=== PATIENT | female | born 1965 | race Caucasian/White ===

== ENCOUNTER → 2016-12-21 | Outpatient (REF) | payer BC ==
[~2016-12-21] MED LIST: CLAR10CA3 PO; LEVO75TA4 PO
== END ==
LOC: M LABDRAW1 16:01
PROVIDERS: ATTEND Physician Assistant Medical
DX: E06.3 Autoimmune thyroiditis (principal)

== ENCOUNTER → 2017-07-06 | Outpatient (REF) | payer BC | LOC: M LABDRAW1 10:42 | PROVIDERS: ATTEND Physician Assistant Medical | DX: E06.3 Autoimmune thyroiditis (principal) ==

== ENCOUNTER → 2018-07-29 | Outpatient (REF) | payer BC ==
[2018-07-29 19:18] LABS: THYROID STIMULATING HORMONE 0.289 uIU/ML (0.358-3.740)
== END ==
LOC: M LABDRAW1 17:44
DX: E06.3 Autoimmune thyroiditis (principal)
CPT/HCPCS: 84443

== ENCOUNTER 2019-08-08 10:35 | Emergency (ER) | payer OTHER, BC ==
[~2019-08-08] VITALS: Ht 177.8 cm; Wt 97.4 kg
[2019-08-08] MEDS ORDERED: DOXY100C PO (10:39)
[2019-08-08] MEDS ORDERED: SYNT100T PO (10:39)
[2019-08-08] MEDS ORDERED: KETOROLAC 60 MG/2 ML VIAL (J1885) IM ONE (12:45)
[2019-08-08] MEDS ORDERED: METHOCARBAMOL 750 MG TAB PO ONE (12:45)
[2019-08-08 13:27] VITALS: BP 152/88
[2019-08-08] MEDS ORDERED: KETO10TAB PO (14:15)
[2019-08-08] MEDS ORDERED: META1TAB23 PO (14:15)
== END 2019-08-08 14:20 | disposition home or self-care (01) ==
LOC: M ED 10:35
DX: S39.012A Strain of muscle, fascia and tendon of lower back, initial encounter (principal); Y93.F9 Activity, other caregiving; Y99.0 Civilian activity done for income or pay; E03.9 Hypothyroidism, unspecified; Z79.899 Other long term (current) drug therapy
CPT/HCPCS: 96372; 99283; J1885

== ENCOUNTER → 2019-09-09 | Outpatient (REF) | payer OTHER, BC ==
[~2019-09-09] MED LIST changes: +DOXY100C PO; +KETO10TAB PO; +META1TAB23 PO; +SYNT100T PO
== END ==
LOC: M LABDRAW1 15:49
PROVIDERS: ATTEND Internal Medicine Endocrinology, Diabetes & Metabolism
DX: E06.3 Autoimmune thyroiditis (principal)

== ENCOUNTER → 2020-11-08 | Outpatient (REF) | payer BC | LOC: M LAB REF 12:52 | PROVIDERS: ATTEND Physician Assistant Medical | DX: Z11.59 Encounter for screening for other viral diseases (principal) ==

== ENCOUNTER 2021-09-22 19:24 | Emergency (ER) | payer BC ==
[~2021-09-22] VITALS: Ht 177.8 cm; Wt 97.5 kg
[~2021-09-22 19:24] MED LIST changes: -DOXY100C PO; +DOXY100C3 PO
[2021-09-22 19:25] VITALS: BP 137/73
[2021-09-22] MEDS ORDERED: CELE100C PO (19:33)
[2021-09-22] MEDS ORDERED: FLON1SPR NARES (19:33)
--- OUTSIDE RECORDS SUMMARY | 2021-09-22 19:37 | CCD ---
Author Author [facility] Organization [facility] Address Unknown Phone Unavailable Care Team Providers Care Naturopath Name Role Phone Dutch KERR Unavailable Unavailable Juliocesar WALKER Unavailable Unavailable BETH-GUERO, WANDA DO Unavailable Unavailable BETH-GUERO, WANDA DO Unavailable Unavailable BETH-GUERO, WANDA DO Unavailable Unavailable BETH-GUERO, WANDA DO Unavailable Unavailable BETH-GUERO, WANDA DO Unavailable Unavailable BETH-GUERO, WANDA DO Unavailable Unavailable BETH-GUERO, WANDA DO Unavailable Unavailable BETH-GUERO, WANDA DO Unavailable Unavailable BETH-GUERO, WANDA DO Unavailable Unavailable BETH-GUERO, WANDA DO Unavailable Unavailable BETH-GUERO, WANDA DO Unavailable Unavailable BETH-GUERO, WANDA DO Unavailable Unavailable BETH-GUERO, WANDA DO Unavailable Unavailable BETH-GUERO, WANDA DO Unavailable Unavailable BETH-GUERO, WANAD DO Unavailable Unavailable BETH-GUERO, WANDA DO Unavailable Unavailable BETH-GUERO, WANDA DO Unavailable Unavailable BETH-GUERO, WANDA DO Unavailable Unavailable BETH-GUERO, WANDA DO Unavailable Unavailable BETH-GUERO, WANDA DO Unavailable Unavailable BETH-GUERO, WANDA DO Unavailable Unavailable BETH-GUERO, WANDA DO Unavailable Unavailable BETH-GUERO, WANDA DO Unavailable Unavailable BETH-GUERO, WANDA DO Unavailable Unavailable BETH-GUERO, WANDA DO Unavailable Unavailable BETH-GUERO, WANDA DO Unavailable Unavailable BETH-GUERO, WANDA DO Unavailable Unavailable BETH-GUERO, WANDA DO Unavailable Unavailable BETH-GUERO, WANDA DO Unavailable Unavailable BETH-GUERO, WANDA DO Unavailable Unavailable BETH-GUERO, WANDA DO Unavailable Unavailable BETH-GUERO, WANDA DO Unavailable Unavailable BETH-GUERO, WANDA DO Unavailable Unavailable BETH-GUERO, WANDA DO Unavailable Unavailable BETH-GUERO, WANDA DO Unavailable Unavailable BETH-GUERO, WANDA DO Unavailable Unavailable BETH-GUERO, WANDA DO Unavailable Unavailable BETH-GUERO, WANDA DO Unavailable Unavailable BETH-GUERO, WANDA DO Unavailable Unavailable BETH-GUERO, WANDA DO Unavailable Unavailable BETH-GUERO, WANDA DO Unavailable Unavailable BETH-GUERO, WANDA DO Unavailable Unavailable BETH-GUERO, WANDA DO Unavailable Unavailable BETH-GUERO, WANDA DO Unavailable Unavailable BETH-GUERO, WANDA DO Unavailable Unavailable BETH-GUERO, WANDA DO Unavailable Unavailable BETH-GUERO, WANDA DO Unavailable Unavailable BETH-GUERO, WANDA DO Unavailable Unavailable BETH-GUERO, WANDA DO Unavailable Unavailable BETH-GUERO, WANDA DO Unavailable Unavailable BETH-GUERO, WANDA DO Unavailable Unavailable BETH-GUERO, WANDA DO Unavailable Unavailable BETH-GUERO, WANDA DO Unavailable Unavailable BETH-GUERO, WANDA DO Unavailable Unavailable BETH-GUERO, WANDA DO Unavailable Unavailable BETH-GUERO, WANDA DO Unavailable Unavailable BETH-GUERO, WANDA DO Unavailable Unavailable BETH-GUERO, WANDA DO Unavailable Unavailable BETH-GUERO, WANDA DO Unavailable Unavailable BETH-GUERO, WANDA DO Unavailable Unavailable BETH-GUERO, WANDA DO Unavailable Unavailable BETH-GUERO, WANDA DO Unavailable Unavailable BETH-GUERO, WANDA DO Unavailable Unavailable BETH-GUERO, WANDA DO Unavailable Unavailable BETH-GUERO, WANDA DO Unavailable Unavailable BETH-GUERO, WANDA DO Unavailable Unavailable BETH-GUERO, WANDA DO Unavailable Unavailable BETH-GUERO, WANDA DO Unavailable Unavailable BETH-GUERO, WANDA DO Unavailable Unavailable BETH-GUERO, WANDA DO Unavailable Unavailable BETH-GUERO, WANDA DO Unavailable Unavailable BETH-GUERO, WANDA DO Unavailable Unavailable BETH-GUERO, WANDA DO Unavailable Unavailable BETH-GUERO, WANDA DO Unavailable Unavailable BETH-GUERO, WANDA DO Unavailable Unavailable BETH-GUERO, WANDA DO Unavailable Unavailable BETH-GUERO, WANDA DO Unavailable Unavailable BETH-GUERO, WANDA DO Unavailable Unavailable BETH-GUERO, WANDA DO Unavailable Unavailable BETH-GUERO, WANDA DO Unavailable Unavailable BETH-GUERO, WANDA DO Unavailable Unavailable BETH-GUERO, WANDA DO Unavailable Unavailable BETH-GUERO, WANDA DO Unavailable Unavailable BETH-GUERO, WANDA DO Unavailable Unavailable Sofia, Donell PA Unavailable Unavailable Sofia, Donell PA Unavailable Unavailable Sofia, Donell PA Unavailable Unavailable Sofia, Donell PA Unavailable Unavailable Sofia, Donell PA Unavailable Unavailable Sofia, Donell PA Unavailable Unavailable Sofia, Donell PA Unavailable Unavailable Sofia, Donell PA Unavailable Unavailable Sofia, Donell PA Unavailable Unavailable Sofia, Donell PA Unavailable Unavailable Sofia, Donell PA Unavailable Unavailable Sofia, Donell PA Unavailable Unavailable Sofia, Donell PA Unavailable Unavailable Sofia, Donell PA Unavailable Unavailable Sofia, Dnoell PA Unavailable Unavailable Sofia, Donell PA Unavailable Unavailable Sofia, Donell PA Unavailable Unavailable Sofia, Donell PA Unavailable Unavailable Sofia, Donell PA Unavailable Unavailable Sofia, Donell PA Unavailable Unavailable Sofia, Donell PA Unavailable Unavailable Sofia, Donell PA Unavailable Unavailable Sofia, Donell PA Unavailable Unavailable Sofia, Donell PA Unavailable Unavailable Sofia, Donell PA Unavailable Unavailable Sofia, Donell PA Unavailable Unavailable Sofia, Donell PA Unavailable Unavailable Sofia, Donlel PA Unavailable Unavailable Sofia, Donell PA Unavailable Unavailable Sofia, Donell PA Unavailable Unavailable Sofia, Donell PA Unavailable Unavailable Sofia, Donell PA Unavailable Unavailable Sofia, Donell PA Unavailable Unavailable Sofia, Donell PA Unavailable Unavailable Sofia, Donell PA Unavailable Unavailable Sofia, Donell PA Unavailable Unavailable Sofia, Donell PA Unavailable Unavailable Sofia, Donell PA Unavailable Unavailable Sofia, Donell PA Unavailable Unavailable Sofia, Donell PA Unavailable Unavailable Sofia, Donell PA Unavailable Unavailable Sofia, Donell PA Unavailable Unavailable Sofia, Donell PA Unavailable Unavailable Sofia, Donell PA Unavailable Unavailable Sofia, Donell PA Unavailable Unavailable Sofia, Donell PA Unavailable Unavailable Sofia, Donell PA Unavailable Unavailable Sofia, Donell PA Unavailable Unavailable Sofia, Donell PA Unavailable Unavailable Sofia, Donell PA Unavailable Unavailable Sofia, Donell PA Unavailable Unavailable Sofia, Donell PA Unavailable Unavailable Sofia, Donell PA Unavailable Unavailable Sofia, Donell PA Unavailable Unavailable [id number], NA Unavailable [phone] Rabbia, C Yanely Unavailable Unavailable Rabbia, C Yanely Unavailable Unavailable Rabbia, C Yanely Unavailable Unavailable Berkowitz, P Harley PA Unavailable Unavailable Berkowitz, P Harley PA Unavailable Unavailable Berkowitz, P Harley PA Unavailable Unavailable Berkowitz, P Harley PA Unavailable Unavailable Berkowitz, P Harley PA Unavailable Unavailable Berkowitz, P Harley PA Unavailable Unavailable Berkowitz, P Harley PA Unavailable Unavailable Berkowitz, P Harley PA Unavailable Unavailable Berkowitz, P Harley PA Unavailable Unavailable Berkowitz, P Harley PA Unavailable Unavailable Berkowitz, P Harley PA Unavailable Unavailable Berkowitz, P Harley PA Unavailable Unavailable Berkowitz, P Harley PA Unavailable Unavailable Berkowitz, P Harley PA Unavailable Unavailable Berkowitz, P Harley PA Unavailable Unavailable Berkowitz, P Harley PA Unavailable Unavailable Berkowitz, P Harley PA Unavailable Unavailable Berkowitz, P Harley PA Unavailable Unavailable Berkowitz, P Harley PA Unavailable Unavailable Berkowitz, P Harley PA Unavailable Unavailable Berkowitz, P Harley PA Unavailable Unavailable Berkowitz, P Harley PA Unavailable Unavailable Berkowitz, P Harley PA Unavailable Unavailable Berkowitz, P Harley PA Unavailable Unavailable Berkowitz, P Harley PA Unavailable Unavailable Berkowitz, P Harley PA Unavailable Unavailable Berkowitz, P Harley PA Unavailable Unavailable Berkowitz, P Harley PA Unavailable Unavailable Berkowitz, P Harley PA Unavailable Unavailable Berkowitz, P Harley PA Unavailable Unavailable Berkowitz, P Harley PA Unavailable Unavailable Berkowitz, P Harley PA Unavailable Unavailable Berkowitz, P Harley PA Unavailable Unavailable Berkowitz, P Harley PA Unavailable Unavailable Berkowitz, P Harley PA Unavailable Unavailable Berkowitz, P Harley PA Unavailable Unavailable Berkowitz, P Harley PA Unavailable Unavailable Berkowitz, P Harley PA Unavailable Unavailable Berkowitz, P Harley PA Unavailable Unavailable Berkowitz, P Harley PA Unavailable Unavailable Berkowitz, P Harley PA Unavailable Unavailable Berkowitz, P Harley PA Unavailable Unavailable Renuka Hannah MD Unavailable Unavailable Renuka Hannah MD Unavailable Unavailable Renuka Hannah MD Unavailable Unavailable Renuka Hannah MD Unavailable Unavailable Renuka Hannah MD Unavailable Unavailable Renuka Hannah MD Unavailable Unavailable Renuka Hannah MD Unavailable Unavailable Renuka Hannah MD Unavailable Unavailable Renuka Hannah MD Unavailable Unavailable Renuka Hannah MD Unavailable Unavailable Renuka Hannah MD Unavailable Unavailable Renuka Hannah MD Unavailable Unavailable Renuka Hannah MD Unavailable Unavailable Renuka Hannah MD Unavailable Unavailable Renuka Hannah MD Unavailable Unavailable Renuka Hannah MD Unavailable Unavailable Renuka Hannah MD Unavailable Unavailable Renuka Hannah MD Unavailable Unavailable Renuka Hannah MD Unavailable Unavailable Renuka Hannah MD Unavailable Unavailable Renuka Hannah MD Unavailable Unavailable Renuka Hannah MD Unavailable Unavailable Renuka Hannah MD Unavailable Unavailable Renuka Hannah MD Unavailable Unavailable Renuka Hannah MD Unavailable Unavailable Renuka Hannah MD Unavailable Unavailable Renuka Hannah MD Unavailable Unavailable Renuka Hannah MD Unavailable Unavailable Renuka Hannah MD Unavailable Unavailable Renuka Hannah MD Unavailable Unavailable Renuka Hannah MD Unavailable Unavailable Renuka Hannah MD Unavailable Unavailable Renuka Hannah MD Unavailable Unavailable Renuka Hannah MD Unavailable Unavailable Renuka Hannah MD Unavailable Unavailable Renuka Hannah MD Unavailable Unavailable Renuka Hannah MD Unavailable Unavailable Renuka Hannah MD Unavailable Unavailable Renuka Hannah MD Unavailable Unavailable Renuka Hannah MD Unavailable Unavailable Renuka Hannah MD Unavailable Unavailable Renuka Hannah MD Unavailable Unavailable Renuka Hannah MD Unavailable Unavailable Renuka Hannah MD Unavailable Unavailable Renuka Hannah MD Unavailable Unavailable Renuka Hannah MD Unavailable Unavailable Renuka Hannah MD Unavailable Unavailable Renuka Hannah MD Unavailable Unavailable Renuka Hannah MD Unavailable Unavailable Renuka Hannah MD Unavailable Unavailable Renuka Hannah MD Unavailable Unavailable Renuka Hannah MD Unavailable Unavailable Renuka Hannah MD Unavailable Unavailable Renuka Hannah MD Unavailable Unavailable Renuka Hannah MD Unavailable Unavailable Renuka Hannah MD Unavailable Unavailable Renuka Hannah MD Unavailable Unavailable Renuka Hannah MD Unavailable Unavailable Renuka Hannah MD Unavailable Unavailable Renuka Hannah MD Unavailable Unavailable Renuka Hannah MD Unavailable Unavailable Renuka Hannah MD Unavailable Unavailable Renuka Hannah MD Unavailable Unavailable Renuka Hannah MD Unavailable Unavailable Renuka Hannah MD Unavailable Unavailable Renuka Hannah MD Unavailable Unavailable Renuka Hannah MD Unavailable Unavailable Renuka Hannah MD Unavailable Unavailable Renuka Hannah MD Unavailable Unavailable Renuka Hannah MD Unavailable Unavailable Renuka Hannah MD Unavailable Unavailable Renuka Hannah MD Unavailable Unavailable Renuka Hannah MD Unavailable Unavailable Renuka Hannah MD Unavailable Unavailable Renuka Hannah MD Unavailable Unavailable Renuka Hannah MD Unavailable Unavailable Renuka Hannah MD Unavailable Unavailable Renuka Hannah MD Unavailable Unavailable Renuka Hannah MD Unavailable Unavailable Renuka Hannah MD Unavailable Unavailable Saadia WILLAMS MD Unavailable Unavailable Saadia WILLAMS MD Unavailable Unavailable Saadia WILLAMS MD Unavailable Unavailable Saadia WILLAMS MD Unavailable Unavailable Saadia WILLAMS MD Unavailable Unavailable Saadia WILLAMS MD Unavailable Unavailable Saadia WILLAMS MD Unavailable Unavailable Saadia WILLAMS MD Unavailable Unavailable Saadia WILLAMS MD Unavailable Unavailable Saadia WILLAMS MD Unavailable Unavailable Saadia WILLAMS MD Unavailable Unavailable WILLAMS, A JASWINDER MD Unavailable Unavailable WILLAMS, A JASWINDER MD Unavailable Unavailable WILLAMS, A JASWINDER MD Unavailable Unavailable WILLAMS, A JASWINDER MD Unavailable Unavailable WILLAMS, A JASWINDER MD Unavailable Unavailable WILLAMS, A JASWINDER MD Unavailable Unavailable WILLAMS, A JASWINDER MD Unavailable Unavailable WILLAMS, A JASWINDER MD Unavailable Unavailable WILLAMS, A JASWINDER MD Unavailable Unavailable WILLAMS, A JASWINDER MD Unavailable Unavailable WILLAMS, A JASWINDER MD Unavailable Unavailable WILLAMS, A JASWINDER MD Unavailable Unavailable WILLAMS, A JASWINDER MD Unavailable Unavailable WILLAMS, A JASWINDER MD Unavailable Unavailable WILLAMS, A JASWINDER MD Unavailable Unavailable WILLAMS, A JASWINDER MD Unavailable Unavailable WILLAMS, A JASWINDER MD Unavailable Unavailable WILLAMS, A JASWINDER MD Unavailable Unavailable WILLAMS, A JASWINDER MD Unavailable Unavailable WILLAMS, A JASWINDER MD Unavailable Unavailable WILLAMS, A JASWINDER MD Unavailable Unavailable WILLAMS, A JASWINDER MD Unavailable Unavailable WILLAMS, A JASWINDER MD Unavailable Unavailable WILLAMS, A JASWINDER MD Unavailable Unavailable WILLAMS, A JASWINDER MD Unavailable Unavailable WILLAMS, A JASWINDER MD Unavailable Unavailable WILLAMS, A JASWINDER MD Unavailable Unavailable WILLAMS, A JASWINDER MD Unavailable Unavailable WILLAMS, A JASWINDER MD Unavailable Unavailable WILLAMS, A JASWINDER MD Unavailable Unavailable WILLAMS, A JASWINDER MD Unavailable Unavailable WILLAMS, A JASWINDER MD Unavailable Unavailable WILLAMS, A JASWINDER MD Unavailable Unavailable WILLAMS, A JASWINDER MD Unavailable Unavailable WILLAMS, A JASWINDER MD Unavailable Unavailable WILLAMS, A JASWINDER MD Unavailable Unavailable WILLAMS, A JASWINDER MD Unavailable Unavailable WILLAMS, A JASWINDER MD Unavailable Unavailable WILLAMS, A JASWINDER MD Unavailable Unavailable WILLAMS, A JASWINDER MD Unavailable Unavailable WILLAMS, A JASWINDER MD Unavailable Unavailable WILLAMS, A JASWINDER MD Unavailable Unavailable WILLAMS, A JASWINDER MD Unavailable Unavailable WILLAMS, A JASWINDER MD Unavailable Unavailable WILLAMS, A JASWINDER MD Unavailable Unavailable WILLAMS, A JASWINDER MD Unavailable Unavailable WILLAMS, A JASWINDER MD Unavailable Unavailable WILLAMS, A JASWINDER MD Unavailable Unavailable WILLAMS, A JASWINDER MD Unavailable Unavailable WILLAMS, A JASWINDER MD Unavailable Unavailable WILLAMS, A JASWINDER MD Unavailable Unavailable WILLAMS, A JASWINDER MD Unavailable Unavailable WILLAMS, A JASWINDER MD Unavailable Unavailable WILLAMS, A JASWINDER MD Unavailable Unavailable WILLAMS, A JASWINDER MD Unavailable Unavailable WILLAMS, A JASWINDER MD Unavailable Unavailable WILLAMS, A JASWINDER MD Unavailable Unavailable WILLAMS, A JASWINDER MD Unavailable Unavailable WILLAMS, A JASWINDER MD Unavailable Unavailable WILLAMS, A JASWINDER MD Unavailable Unavailable WILLAMS, A JASWINDER MD Unavailable Unavailable WILLAMS, A JASWINDER MD Unavailable Unavailable WILLAMS, A JASWINDER MD Unavailable Unavailable WILLAMS, A JASWINDER MD Unavailable Unavailable WILLAMS, Saadia SAN MD Unavailable Unavailable WILLAMS, Saadia SAN MD Unavailable Unavailable WILLAMS, Saadia SAN MD Unavailable Unavailable WILLAMS, Saadia SAN MD Unavailable Unavailable WILLAMS, Saadia SAN MD Unavailable Unavailable WILLAMS, Saadia SAN MD Unavailable Unavailable WILLAMS, Saadia SAN MD Unavailable Unavailable WILLAMS, Saadia SAN MD Unavailable Unavailable WILLAMS, Saadia SAN MD Unavailable Unavailable WILLAMS, Saadia SAN MD Unavailable Unavailable WILLAMS, Saadia SAN MD Unavailable Unavailable WILLAMS, Saadia SAN MD Unavailable Unavailable WILLAMS, Saadia SAN MD Unavailable Unavailable WILLAMS, Saadia SAN MD Unavailable Unavailable WILLAMS, Saadia SAN MD Unavailable Unavailable WILLAMS, Saadia SAN MD Unavailable Unavailable WILLAMS, Saadia SAN MD Unavailable Unavailable ETHEL, B KEVIN THREADING MACHINE TENDER Unavailable Unavailable ETHEL, B KEVIN THREADING MACHINE TENDER Unavailable Unavailable ETHEL, B KEVIN THREADING MACHINE TENDER Unavailable Unavailable ETHEL, B KEVIN THREADING MACHINE TENDER Unavailable Unavailable ETHEL, B KEVIN THREADING MACHINE TENDER Unavailable Unavailable ETHEL, B KEVIN THREADING MACHINE TENDER Unavailable Unavailable ETHEL, B KEVIN THREADING MACHINE TENDER Unavailable Unavailable ETHEL, B KEVIN THREADING MACHINE TENDER Unavailable Unavailable ETHEL, B KEVIN THREADING MACHINE TENDER Unavailable Unavailable ETHEL, B KEVIN THREADING MACHINE TENDER Unavailable Unavailable ETHEL, B KEVIN THREADING MACHINE TENDER Unavailable Unavailable ETHEL, B KEVIN THREADING MACHINE TENDER Unavailable Unavailable ETHEL, B KEVIN THREADING MACHINE TENDER Unavailable Unavailable ETHEL, B KEVIN THREADING MACHINE TENDER Unavailable Unavailable ETHEL, B KEVIN THREADING MACHINE TENDER Unavailable Unavailable ETHEL, B KEVIN THREADING MACHINE TENDER Unavailable Unavailable ETHEL, B KEVIN THREADING MACHINE TENDER Unavailable Unavailable ETHEL, B KEVIN THREADING MACHINE TENDER Unavailable Unavailable ETHEL, B KEVIN THREADING MACHINE TENDER Unavailable Unavailable ETHEL, B KEVIN THREADING MACHINE TENDER Unavailable Unavailable ETHEL, B KEVIN THREADING MACHINE TENDER Unavailable Unavailable ETHEL, B KEVIN THREADING MACHINE TENDER Unavailable Unavailable ETHEL, B KEVIN THREADING MACHINE TENDER Unavailable Unavailable ETHEL, B KEVIN THREADING MACHINE TENDER Unavailable Unavailable ETHEL, B KEVIN THREADING MACHINE TENDER Unavailable Unavailable ETHEL, B KEVIN THREADING MACHINE TENDER Unavailable Unavailable ETHEL, B KEVIN THREADING MACHINE TENDER Unavailable Unavailable ETHEL, B KEVIN THREADING MACHINE TENDER Unavailable Unavailable ETHEL, B KEVIN THREADING MACHINE TENDER Unavailable Unavailable ETHEL, B KEVIN THREADING MACHINE TENDER Unavailable Unavailable ETHEL, B KEVIN THREADING MACHINE TENDER Unavailable Unavailable ETHEL, B KEVIN THREADING MACHINE TENDER Unavailable Unavailable ETHEL, B KEVIN THREADING MACHINE TENDER Unavailable Unavailable ETHEL, B KEVIN THREADING MACHINE TENDER Unavailable Unavailable ETHEL, B KEVIN THREADING MACHINE TENDER Unavailable Unavailable ETHEL, B KEVIN THREADING MACHINE TENDER Unavailable Unavailable ETHEL, B KEVIN THREADING MACHINE TENDER Unavailable Unavailable ETHEL, B KEVIN THREADING MACHINE TENDER Unavailable Unavailable ETHEL, B KEVIN THREADING MACHINE TENDER Unavailable Unavailable ETHEL, B KEVIN THREADING MACHINE TENDER Unavailable Unavailable ETHEL, B KEVIN THREADING MACHINE TENDER Unavailable Unavailable ETHEL, B KEVIN THREADING MACHINE TENDER Unavailable Unavailable ETHEL, B KEVIN THREADING MACHINE TENDER Unavailable Unavailable ETHEL, B KEVIN THREADING MACHINE TENDER Unavailable Unavailable ETHEL, B KEVIN THREADING MACHINE TENDER Unavailable Unavailable ETHEL, B KEVIN THREADING MACHINE TENDER Unavailable Unavailable ETHEL, B KEVIN THREADING MACHINE TENDER Unavailable Unavailable ETHEL, B KEVIN THREADING MACHINE TENDER Unavailable Unavailable ETHEL, B KEVIN THREADING MACHINE TENDER Unavailable Unavailable ETHEL, B KEVIN THREADING MACHINE TENDER Unavailable Unavailable ETHEL, B KEVIN THREADING MACHINE TENDER Unavailable Unavailable ETHEL, B KEVIN THREADING MACHINE TENDER Unavailable Unavailable ETHEL, B KEVIN THREADING MACHINE TENDER Unavailable Unavailable ETHEL, B KEVIN THREADING MACHINE TENDER Unavailable Unavailable ETHEL, B KEVIN THREADING MACHINE TENDER Unavailable Unavailable ETHEL, B KEVIN THREADING MACHINE TENDER Unavailable Unavailable ETHEL, B KEVIN THREADING MACHINE TENDER Unavailable Unavailable ETHEL, B KEVIN THREADING MACHINE TENDER Unavailable Unavailable ETHEL, B KEVIN THREADING MACHINE TENDER Unavailable Unavailable ETHEL, B KEVIN THREADING MACHINE TENDER Unavailable Unavailable ETHEL, B KEVIN THREADING MACHINE TENDER Unavailable Unavailable ETHEL, B KEVIN THREADING MACHINE TENDER Unavailable Unavailable CARLITA, R KISHOR Unavailable Unavailable Renuka Hannah MD Unavailable Unavailable Renuka Hannah MD Unavailable Unavailable Renuka Hannah MD Unavailable Unavailable Renuka Hannah MD Unavailable Unavailable Renuka Hannah MD Unavailable Unavailable Renuka Hannah MD Unavailable Unavailable Renuka Hannah MD Unavailable Unavailable Renuka Hannah MD Unavailable Unavailable Renuka Hannah MD Unavailable Unavailable Renuka Hannah MD Unavailable Unavailable Renuka Hannah MD Unavailable Unavailable Renuka Hannah MD Unavailable Unavailable Renuka Hannah MD Unavailable Unavailable Renuka Hannah MD Unavailable Unavailable Renuka Hannah MD Unavailable Unavailable Renuka Hannah MD Unavailable Unavailable Renuka Hannah MD Unavailable Unavailable Renuka Hannah MD Unavailable Unavailable Renuka Hannah MD Unavailable Unavailable Renuka Hannah MD Unavailable Unavailable Renuka Hannah MD Unavailable Unavailable Renuka Hannah MD Unavailable Unavailable Renuka Hannah MD Unavailable Unavailable HannahRenuka MD Unavailable Unavailable Hannah, Renuka Zimmerman MD Unavailable Unavailable Hannah, Renuka Zimmerman MD Unavailable Unavailable Hannah, Renuka Zimmerman MD Unavailable Unavailable Hannah, Renuka Zimmerman MD Unavailable Unavailable Hannah, Renuka Zimmerman MD Unavailable Unavailable Hannah, Renuka Zimmerman MD Unavailable Unavailable Hannah, Renuka Zimmerman MD Unavailable Unavailable Hannah, Renuka Zimmerman MD Unavailable Unavailable Hannah, Renuka Zimmerman MD Unavailable Unavailable Hannah, Renuka Zimmerman MD Unavailable Unavailable Hannah, Renuka Zimmerman MD Unavailable Unavailable Hannah, Renuka Zimmerman MD Unavailable Unavailable Hannah, Renuka Zimmerman MD Unavailable Unavailable Hannah, Renuka Zimmerman MD Unavailable Unavailable Hannah, Renuka Zimmerman MD Unavailable Unavailable Hannah, C Elsie DAVID Unavailable Unavailable JAWED, MOHAMMED MD Unavailable Unavailable JAWED, MOHAMMED MD Unavailable Unavailable JAWED, MOHAMMED MD Unavailable Unavailable JAWED, MOHAMMED MD Unavailable Unavailable JAWED, MOHAMMED MD Unavailable Unavailable JAWED, MOHAMMED MD Unavailable Unavailable JAWED, MOHAMMED MD Unavailable Unavailable JAWED, MOHAMMED MD Unavailable Unavailable JAWED, MOHAMMED MD Unavailable Unavailable JAWED, MOHAMMED MD Unavailable Unavailable JAWED, MOHAMMED MD Unavailable Unavailable JAWED, MOHAMMED MD Unavailable Unavailable JAWED, MOHAMMED MD Unavailable Unavailable JAWED, MOHAMMED MD Unavailable Unavailable JAWED, MOHAMMED MD Unavailable Unavailable JAWED, MOHAMMED MD Unavailable Unavailable JAWED, MOHAMMED MD Unavailable Unavailable JAWED, MOHAMMED MD Unavailable Unavailable JAWED, MOHAMMED MD Unavailable Unavailable Re-disclosure Warning The records that you are about to access may contain information from federally-assisted alcohol or drug abuse programs. If such information is present, then the following federally mandated warning applies: This information has been disclosed to you from records protected by federal confidentiality rules (42 CFR part 2). The federal rules prohibit you from making any further disclosure of this information unless further disclosure is expressly permitted by the written consent of the person to whom it pertains or as otherwise permitted by 42 CFR part 2. A general authorization for the release of medical or other information is NOT sufficient for this purpose. The Federal rules restrict any use of the information to criminally investigate or prosecute any alcohol or drug abuse patient.The records that you are about to access may contain highly sensitive health information, the redisclosure of which is protected by Article 27-F of the [facility] Public Health law. If you continue you may have access to information: Regarding HIV / AIDS; Provided by facilities licensed or operated by the [facility] Office of Mental Health; or Provided by the [facility] Office for People With Developmental Disabilities. If such information is present, then the following [facility] mandated warning applies: This information has been disclosed to you from confidential records which are protected by state law. State law prohibits you from making any further disclosure of this information without the specific written consent of the person to whom it pertains, or as otherwise permitted by law. Any unauthorized further disclosure in violation of state law may result in a fine or alf sentence or both. A general authorization for the release of medical or other information is NOT sufficient authorization for further disc losure. Family History Family Member Name Family Member Gender Family Member Status Date o f Status Description Data Source(s) Unknown Unknown Problem [facility] ([facility]) Unknown Unknown Problem [facility] ([facility]) Encounters Encounter Providers Location Date Indications Data Source(s ) Outpatient Attender: Elsie Hannah MD 10/12/2021 12:00:00 AM [facility] Outpatient Attender: Elsie Hannah MD 09/12/2021 12:00:00 AM [facility] Outpatient Attender: Elsie Hannah MD [id number] 09/09 12:00:00 AM EDT - 09/09/2021 03:48:17 PM T [facility] [place] ( in Healthcare facility) Attender: Elsie Russo 09/01/2021 05:30:00 AM EDT - 09/01/2021 06:50:00 PM EDT [facility] Outpatient Attender: Elsie Hannah MDAdmitter: Elsie pettit MD 09/01/2021 05:30:00 AM EDT - 09/01/2021 06:50:00 PM EDT UTERINE FIBROIDS D21.9 [facility] UTERINE FIBROIDS D21.9 Patient discharged. Outpatient Attender: Elsie Hannah MD 08/30/2021 02:01:57 PM EDT [facility] Outpatient Attender: NA MEDNATIVIDAD_104 CMP Internal Med at [place] [facility] 08/29/2021 10:00:00 AM EDT [facility] ([facility]) Outpatient Attender: Elsie Hannah MD 08/25/2021 09:07:58 PM EDT [facility] Outpatient Attender: Elsie Hannah MD 08/25/2021 07: 53:00 PM EDT TYPE AND SCREEN [facility] TYPE AND SCREEN Outpatient Attender: Elsie Hannah MD [id number] 08/25 12:00:00 AM EDT - 08/25/2021 02:46:52 PM EDT [facility] Outpatient Attender: Yanely ChaseReferrer: Elsie Hannah MD 08/18/2021 12:00:00 AM EDT [facility] pretest Outpatient Attender: NEMESIO KERR 07/19/20 12:00:00 AM EDT - 07/19/2021 03:08:54 PM T [facility] Outpatient Attender: JASWINDER WILLAMS MD [id number] 07/05/2021 12:00:0 0 AM [facility] Outpatient Referrer: JASWINDER WILLAMS MD 07/05/2021 12 :00:00 AM EDT Unilateral primary osteoarthritis, right hip [facility] Unilateral primary osteoarthritis, right hip Outpatient Attender: Elsie Hannah MD [id number] 07/04 12:00:00 AM EDT - 07/04/2021 10:40:08 AM T [facility] Outpatient Attender: Harley Maeerrer: Harley Zuñiga A-XXBJORT 06/02/2021 12:00:00 AM T [facility] Outpatient Referrer: Harley GARCIA 05/26/2021 12: 00:00 AM EDT Unilateral primary osteoarthritis, right hip [facility] Unilateral primary osteoarthritis, right hip OFFICE OUTPATIENT VISIT 15 MINUTES Attender: KEVIN DAVENPORT NP Physical Therapy 05/12/2021 09:45:00 AM EDT MED[facility] ([facility]) Outpatient Attender: Harley GARCIA [id number] 05/11/2021 12:00:00 AM [facility] Outpatient Attender: PATRIA Camarena er: PATRIA WALKERReferrer: Harley GARCIA 03/31/2021 12:00:00 AM EDT - 03/31/2021 01:03:00 PM EDT Unilateral primary osteoarthritis, right hip [facility] Unilateral primary osteoarthritis, right hip Patient discharged. Outpatient Attender: KISHOR ZAZUETAReferrer: Harley GARCIA [id number] 03/29/2021 12:00:00 AM EDT - 03/30/2021 12:00:00 AM [facility] Outpatient Attender: JI TABARES MDReferrer: Harley GARCIA [facility] 12:00:00 AM [facility] Outpatient Attender: Harley GARCIA [id number] 02/21/2021 12: 00:00 AM EDT Unilateral primary osteoarthritis, right [facility] Unilateral primary osteoarthritis, right hip Outpatient Referrer: Harley GARCIA 02/21/2021 12: 00:00 AM EDT Pain in right [facility] Pain in right hip Outpatient Attender: WANDA RUVALCABA DO [facility] 01/26/2021 03:40:00 PM EDT [facility] ([facility]) OFFICE OUTPATIENT VISIT 15 MINUTES Attender: KEVIN DAVENPORT NP Physical Therapy 11/16/2020 02:30:00 PM EST MED[facility] ([facility]) Outpatient Attender: KEVIN DAVENPORT NP Physical Therapy 03:45:00 PM EDT [facility] ([facility]) Outpatient Attender: Donell GARCIA [facility] 07/29/2020 02:40:00 PM EDT MED[facility] ([facility]) Immunizations Vaccine Date Status Description Data Source(s) COVID-19 VACCINE Pfizer 01/16/2021 12:00:00 AM EST completed [facility] Vaccine Series Complete: YESThis Data wa s Submitted to [facility]. COVID-19 VACCINE Pfizer 12/26/2020 12:00:00 AM EST completed [facility] Vaccine Series Complete: NOThis Data was Submitted to [facility]. Medications Medication Brand Name Start Date Product Form Dose Route Admi nistrative Instructions Pharmacy Instructions Status Indications Reaction Description Data Source(s) lidocaine (XYLOCAINE) 1 % injection [id number] 03/31/2021 01:02:08 PM EDT completed Code/Trauma Medicati on, Starting on Luciana 03/31/21 at 1302 [facility] Medication administered onsite methylPREDNISolone acetate (DEPO-MEDROL) injection 80 mg [id number] 03/31/2021 01:00:00 PM EDT 80 mg Intra-articular completed 80 mg, Intra- articular, Once, On Luciana 03/31/21 at 1300, For 1 dose [facility] Medication administered onsite Levothyroxine Sodium 0.075 MG Oral Table t [Synthroid] Synthroid 75 MCG Oral Tablet Synthroid 75 MCG Oral Tablet 03/21/2021 12:00:00 AM EDT active TAKE 1 TABLET BY MOUTH ONCE DAILY WITH Pia JHAVERI. MDD 1 [facility] azelaic acid 150 MG/ML Topical Foam [Finacea] Finacea 15 % External Foam Finacea 15 % External Foam 01/12/2021 12:00:00 AM EST active APPLY TO FACE ONCE DAILY FOR ROSACEA [facility] Levothyroxine Sodium 0.075 MG Oral Tablet [Synthroid] Synthr oid 08/19/2020 12:00:00 AM EDT ORAL active M EDENT ([facility]) Insurance Providers Payer name Policy type / Coverage type Policy ID Covered libertarian ID Covered libertarian's relationship to sinclair Policy Sinclair Plan Information BS [employer] Medigap Part B [id number] Self R [id number] BS [employer] Medigap Part B [id number] Self R [id number] EXCELLUS C [id number] Spouse [id number] BS [employer] Medigap Part B [id number] Self BS [employer] Medigap Part B [id number] Self R [id number] BS Fed Plan Commercial [id number] Fed Plan Commercial [id number] GREGG CLAIMS ADMIN NCA WC W [id number] Empl [id number] GREGG CLAIMS ADMIN NCA WC W [id number] Empl [id number] EXCELLUS BLUE CROSS BLUE SHIELD HEA [id number] SP [id number] [place] CLAIM ADMIN WORK COMP [id number] SP [id number] [facility] Federal Plan Commercial [id number] Family Dependent [id number] EXCELLUS [facility] FEDERAL [id number] [facility] Federal Plan Commercial [id number] Family Dependent EXCELLUS [facility] FEDERAL [id number] [facility] [place] [facility] FEDERAL [id number] [facility] FEDERAL EMPLOYEE PROGRAM [id number] Problems, Conditions, and Diagnoses Code Display Name Description Problem Type Effective Dates Data Source(s) pretest pretest Diagnosis 08/18/2021 12:00:[address] [facility] M16.11 Unilateral primary osteoarthritis, right hip Unilateral primary osteoarthritis, right hip Diagnosis 07/05/2021 01:40:34 PM [facility] [id number] Allergic rhinitis Allergic rhinitis Problem 07/29/2020 12:00:00 AM EDT MED[facility] ([facility]) [id number] Hypothyroidism Hypothyroidism Problem 07/29/2020 12:00: 00 AM EDT MED[facility] ([facility]) Surgeries/Procedures Procedure Description Date Indications Data Source(s) OFFICE OUTPATIENT VISIT 5 MINUTES 08/29/2021 12:00:00 AM EDT [facility] ([facility]) OFFICE OUTPATIENT VISIT 15 MINUTES 05/12/2021 12:00:00 AM EDT [facility] ([facility] ) ARTHROCENTESIS ASPIR&/INJECTION MAJOR JT/BURSA <td>IR IMAGE GUIDED NEEDLE DRAIN PROCEDURE</td><td>Routine</td><td>03/31/2021 1:06 PM EDT</td><td> Arthritis of right hip</td><td> </td> 03/31/2021 01:06:34 PM EDT Arthritis of right hip [facility] Arthritis of right hip OFFICE OUTPATIENT VISIT 15 MINUTES 11/16/2020 12:00:00 AM EST RA ([facility]) Results ID Date Data Source [id number] 09/09/2021 09:41:48 PM EDT [facility] Name Value Range Interpretation Code Description Data Corrie rce(s) Supporting Document(s) Progress Note [facility] ATWGEg2iFzUPAgAr11/QCRpyOMFik6DkBMyuNPv8RVqzJCEhW9KtTAB0fD8jZAH0QTnERqRmDrRaLWD7 lbm [file] DeSbXcc0HiE3QPH0TBKmIXO9KLIgQbPoNU3FYo6ZGnI5LXI2gBRuFa2RToI8QNbEWyTeTW6LMPw= ID Date Data Source [id number] 09/02/2021 04:58:32 PM EDT [facility] [place] [address]Tel# SURGICAL PATHOLOGY REPORTPatient Name:SARAH MCGEE:1965Received:09/01/2021ccession #:[id number](s) Received: A: Cervix, uterus, bilateral tubesClinical Diagnosis and History: Uterine fibroids. DIAGNOSIS:UTERUS, HYSTERECTOMY (UTERINE WEIGHT 383 GM). CERVIX: CHRONIC INFLAMMATION AND ENDOCERVICAL POLYP. ENDOMETRIUM: INACTIVE. MYOMETRIUM: LEIOMYOMAS. BILATERAL FALLOPIAN TUBES: NO SIGNIFICANT PATHOLOGIC CHANGES. GROSS DESCRIPTION: Specimen received in formalin labeled "uterus, cervix, bilateral tubes"is a uterus and cervix with separate fallopian tubes received in fourfragments. The uterine body has been supracervically amputated. Thecervix is received in three separate fragments. These fragments togetherweigh 383 grams. The uterine body is distorted by subserosal masses andmeasures 7.7 cm from superior to inferior, 8.5 cm from cornu to cornu, and10.5 cm from anterior to posterior. The serosa is predominantly smooth,tracey-pink and glistening. The separate cervical fragments have beensectioned. They vary from 3.5 to 5.0 cm in greatest dimension. Thecervix appears to have measured approximately 3.5 cm in length and 3.0 cmin diameter. The endocervical canal is lined by yellow-peña unremarkablemucosa. Within the upper portion of the posterior canal a glisteningelongated tracey-pink polyp measuring 0.5 cm in greatest dimension isidentified. The endometrial cavity measures 5.5 cm in length and up to4.4 cm in width. It is lined by smooth yellow glistening hemorrhagicendometrium averaging 0.1 cm in thickness. The anterior myometriummeasures 3.0 cm in thickness and the posterior 7.5 cm in thickness. Themyometrium contains multiple subserosal and intramural peña-white whorledmasses without evidence of hemorrhage or necrosis. The largest mass i slocated subserosally in the posterior wall and is diffusely yellowcalcified. The separate segments of fallopian tube measure 8.0 and 6.5 cmin length and measure up to 0.9 cm in diameter. Each includes fimbriatedend. On the cut surfaces of each the wall and lumen are unremarkable. Sections are submitted for microscopic examination as follows: anteriorand posterior cervix AC/PC (to include the possible polyp posteriorly):anterior and posterior endomyometrium AE/PE; fallopian tubes randomly T1and T2 for longer and shorter respectively; myometrial masses L. (9blocks) jglmls/daiReported: 09/02/2021 16:57Electronically Signed Out By Patria Chanel M.D. jzwPathology Associates [facility], [place] [address]Technical component performed at [facility], Histopathology, [address] [place] [address], [address].Reported at [facility], [address] [place] [address], [facility].This report may include immunohistochemical or in-situ hybridizationresults. Testing was developed and the performance characteristicsdetermined by [email or web address], as required byCLIA '88. The FDA has determined that approval for specific use is notnecessary for clinical use. The quality of Hematoxylin and Eosin stainsand as applicable, for all immunohistochemical and/or special stains,including positive and negative controls, were reviewed and consideredappropriate.ICD codes: D25.9 N84.1CPT4 codes: A: 57133D Name Value Range Interpretation Code Description Data Corrie rce(s) Supporting Document(s) ID Date Data Source [id number] 09/09/2021 08:17:00 [place] [address] PATIENT NAME: SARAH MCGEEDATE OF : 1965REPORT: OPERATIONPATIENT NUMBER: [id number] STATUS: SDMEDICAL RECORD NUMBER: [id number] OF ADMISSION: 09/01/2021ATE OF DISCHARGE:ROOM: DATE OF PROCEDURE: 09/01/2021 SURGEON: Elsie Hannah MD PREOPERATIVE DIAGNOSIS: Bulky fibroid uterus. POSTOPERATIVE DIAGNOSIS: Bulky fibroid uterus. PROCEDURE: Total laparoscopic hysterectomy, bilateral salpingectomy andcystoscopy. ESTIMATED BLOOD LOSS: 20 cc. IV FLUIDS: 1600 cc. URINE OUTPUT: 800 cc at the end of the case. ASSISTANTS:1. Annie Rebolledo, PGY-42. Ed Francis, PGY-3 FINDINGS: Examination under anesthesia revealed anteverted bulky uterus.Diagnostic laparoscopy showed a fibroid uterus with a large fundal andlarge anterior fibroid, normal bilateral tubes and ovaries, normal uretersand normal upper abdominal survey. INDICATION AND CONSENT: The patient presented to the preop area for ascheduled laparoscopic hysterectomy. She desired the hysterectomy due touterine fibroids with significant pelvic discomfort and pressure sensation.She is aware of the risks including bleeding, infection, injury tosurrounding structures such as bowel, bladder, ureters, as well as possibleneed for abdominal surgery. She signed the consent and desired to proceed.All questions were answered. PROCEDURE DETAILS: The patient was taken to the operating room and given 2grams of Kefzol for infection prophylaxis. She was given generalanesthesia without difficulty and placed in the dorsal lithotomy position.She was prepped and draped in the normal sterile fashion. The cervix wasvisualized with Horan retractors, grasped with a Farhat's tenaculum andsounded carefully to 11 cm. A medium VCare uterine manipulator was thencarefully placed into the cervix. A Seo catheter was also placed anddrained clear urine. Gloves were changed and attention was then turned tothe abdomen. The patient was moved to a low synchronous position. The skinapproximately 2 cm superior to the umbilicus was infiltrated with 0.5percent Marcaine and the skin was incised approximately 5 mm horizontallywith a scalpel. Piercing towel clamps were used to elevate the abdominalwall and a 5-mm trocar was inserted with laparoscope in place.Intraabdominal entry was confirmed and CO2 gas was insufflated. Pneumoperitoneum was achieved. The intraabdominal survey revealed notrauma below the site of entry though some subcutaneous insufflation was noted. The remaining survey waswithin normal ruff its as stated above. At this point, bilateral lowerpelvic ports were placed after local anesthetic infiltration and under directvisualization from the central port. The patient was then placed inTrendelenburg position and then the bowels were gently swept out of thepelvis using a blunt grasper. Bilateral ureters were visualized at thepelvic brim and traced through the pelvis and noted to be well below theoperative area of the IP ligaments. The attention was then turned to the rightfallopian tube which was grasped by fimbriated end and the LigaSure devicewas then used to serially coagulate and transect the mesosalpinx and thetube was then transected to the level of the cornea. The same procedurewas repeated on the left side as well. After this, a 5-mm bag was insertedinto the abdomen and both tubes were removed carefully under directvisualization, to be sent to pathology along with the rest of the specimen.The port was reinserted and attention then turned to the left utero- ovarianligament which was coagulated and transected with the LigaSure device. Theround ligament was then grasped, coagulated and transected as well. Thebroad ligament was then carefully coagulated and transected with theLigaSure device along the side of the uterus after which the laparoscopicscissors were used to carefully open the anterior leaf of the broadligament angling towards the cervix to develop the bladder flap. The attention was then turned to theleft side and in the same fashion, the utero-ovarian ligament wascoagulated and transected, and the round ligament was then also coagulatedand transected and the broad ligament further coagulated, transectedadditional 1 cm until the anterior leaf of the broad ligament was ableto be opened carefully with the laparoscopic scissors. At this time, dueto difficult visualization secondary to the large fibroids, the 0-degreescope was switched to a 30-degree scope. The left side of the anteriorleaf of the broad ligament was continued to be opened in order to developthe bladder flap which was then connected on to the right side. Afterthis, the uterine vessels were carefully isolated and coagulated andtransected using LigaSure device at the level of the cervix on the rightand then after this on the left. The laparoscopic Bovie tip was thenused to create the colpotomy posteriorly until the green VCare cup wasvisualized. This was then carried anteriorly bilaterally. Anterior colpotomy was initially noted to be low on the blue cup and the area of incision was re-directed to the green cup to complete the colpotomy.The colpotomy was completed and the uterus delivered through the vagina. Due tothe large uterine size it was bivalved in the vagina. The laparoscope was thenremoved and CO2 gas released. The initial anterior lower colpotomy site wasrepaired in a running, locking fashion with 0 Vicryl after which attention was turned to the full vaginal cuff. This was grasped with Allis clamps and closed in a running locking fashion in a horizontal manner with 0 Vicryl suture. Gloves werechanged.Attention turned back to the abdomen. The laparoscope was reinserted andpneumoperitoneum reestablished. Slight oozing was noted at the uterine arterypedicle on the right which wascoagulated carefully with LigaSure and slight oozing from the edge of thevaginal cuff was also noted which was coagulated with the Bovie. Aristawas then placed over the entire operative site and good hemostasis wasnoted. Bilateral ureters were noted to be peristalsing appropriately. Oncystoscopy, bilateral ureteral jets were noted and no defects were noted inthe entire bladder wall. The cystoscope was then removed from the bladder and all portswere removed from the abdomen. The port sites were closed with skin glueand the patient was cleaned and dried and then returned to the dorsal supineposition. Sponge, needle, and instrument counts were correct x2 at the endof the case. The patient was awakened from anesthesia without difficultyand taken to the PACU in the stable condition. She will be discharged homelater today after meeting all discharge criteria. Dr. Hannah was presentand scrubbed for the entire procedure. DICTATED BY: Annie Rebolledo MDI was present for the entire procedure and I agree with the resident documentation. mb Dictated: 09/01/2021 12:01DT: 09/01/2021 19:08Job #: [id number]: NOTE: [facility] computer generated reports are not confirmed orauthenticated unless they are signed by the providerElectronically Authenticated and Edited by:Annie Rebolledo MD on 09/07/2021 04:26 PM EDTElectronically Authenticated and Edited by:ELSIE HANNAH MD on 09/09/2021 08:17 PM EDT Name Value Range Interpretation Code Description Data Corrie rce(s) Supporting Document(s) ID Date Data Source [id number] 09/01/2021 07:57:41 AM EDT [facility] Name Value Range Interpretation Code Description Data Corrie rce(s) Supporting Document(s) SODIUM 142 mmol/L (136-145) [facility] POTASSIUM 5.1 mmol/L (3.6-5.2) [facility] CHLORIDE 109 mmol/L (100-108) H [facility] CO2 30 mmol/L (22-31) [facility] ANION GAP 3 mmol/L (7-16) L [facility] UREA NITROGEN 14 mg/dL (7-24) [facility] CREATININE 0.82 mg/dL (0.60-1.00) [facility] BUN/CREAT RATIO 17.1 RATIO (10.0-20.0) [facility] GLUCOSE 89 mg/dL (70-99) [facility] CALCIUM 9.1 mg/dL (8.4-10.2) [facility] GFR >60 ml/min/1.73m2 (>59) [facility] GFR ( AMER) >60 ml/min/1.73m2 (>59) [facility] GFR INTERPRETATION [facility] --NORMAL KIDNEY FUNCTION OR MILD DISEASE - GFR >OR= 60CHRONIC KIDNEY DISEASE - GFR 15 - 59RENAL FAILURE - GFR <15 Est. GFR calculation based on the MDRDstudy equation, which assumes a steadystate for creatinine. Est. GFR should notbe used for medication dosing. ID Date Data Source [id number] 09/01/2021 06:52:05 AM EDT [facility] [place] Name Value Range Interpretation Code Description Data Corrie rce(s) Supporting Document(s) HEMOGLOBIN A1C @ 5.1 % (4.0-6.0) [facility] [place] Performed using Siemens [place] immunoassa y.Care must be taken when interpreting XpC3lrgrfugw in patients with a hemoglobin variantor decreased erythrocyte lifespan. Values 5.7 - 6.4% suggest prediabetes.Values >=6.5% are diagnostic for diabetes.REFERENCE: DIABETES CARE 2018: 41(S13-S27).PERFORMED AT [address] [place] [address] EST AVERAGE GLUCOSE 100 mg/dL [facility] ID Date Data Source [id number] 09/01/2021 09:29:50 AM EDT [facility] [place] Name Value Range Interpretation Code Description Data Corrie rce(s) Supporting Document(s) POC GLUCOSE 77 mg/dL (70-99) [facility] NOTIFIED NURSEPERFORMED BY DEONTE CLINICAL S TAFF ID Date Data Source [id number] 08/31/2021 10:01:18 AM EDT [facility] Name Value Range Interpretation Code Description Data Corrie rce(s) Supporting Document(s) Progress Note [facility] JZNCMw2kNxJDGhFt33/WYSjvTSNoj4ZaLJfiLDi3FLwoDBRmN8TiVYW4pV0zUPW2TCjZNjYbIgBmSYW3 lbm [file] wih/[place]+WhhGNnGoa+zvk67NqfrOrj9wV2gT7XzZhIOOnEHDORftUYu/tJtQwdvtkWr8RNTHo5FzssgG okNyYJN+Rox6N13Jp3vxHhEI1ELOu9u+JWqNuZFv/BJi3uPOSE9hg4rAVpWs3H0MZ1De8Zie2roO4YXv GLChenVtAr/WjlpOQw47OWkEqrTR7LyDpouEG/tFlv hXNUVB65fFHpvSti8PmOrv5cQTMblVp6KbEWEuvV3jBMJQ8OF0hQLVtx31jvBzDTvXE5zXrdjFg3pDi2 QSWRRz7DoYXTER0pdo8eEyiqNc9/GDW+eXl2+d+aB0nbNpLD7/d70WdFvxApBj8AO1xyep4geGqNxx3Y folMlZrFRTxA3V2FyP/ATlc3Mh0F9MJxqhbRItYzjX KSNRXaoEPyJo5heUpjTSFiJVsNUnGJQESMpzVdOz+9IpERNJmXScNTVQPwRhIfkpLekuKvubUMj0LmpZ KmsT+55Nk8Y61cTn0U8SV5NJGF8qGJZRVV0N+j+mfmDLYw+oLRZIUqXBkwV/kacKrT0SdyKpKCubBYbH fbLG+4qOQNktrUM/RR07UW9wQb0M2trFH2VHDcvVSO IJZ8Dh9QxtUNF075IQ/SdXFiPh4P4HAYaGMXI+uVyhGoLHTGk4f7Mz98QtN8iifVqi8GRS8F3h+Lkl05 CL0uA9DFerIcfS0307vPKhPZjk0E7n6pPik0FARGUoqbIxkbozTCN9Q0i5ZUcsGPiGMIJ7gE4A00lrmi 5orFsunbk4BLOH56uEUyeZVB+1uF1mwQ5XJdaiU [file] Qe4Vo3BrrmV9qiNkNYmzJke2Zv7KEKVYA8IUUe== ID Date Data Source [id number] 08/29/2021 07:38:00 PM EDT [facility] Name Value Range Interpretation Code Description Data Corrie rce(s) Supporting Document(s) SARS coronavirus 2 RNA [Presence] in Res piratory specimen by MATTY with probe detection NOT DETECTED [facility] This lab was reported by [facility]. ID Date Data Source [id number] 08/30/2021 02:01:56 PM EDT [facility] Name Value Range Interpretation Code Description Data Corrie rce(s) Supporting Document(s) SPECIMEN DESCRIPTION [facility] COVID 19 RESULT (NDET) [facility] NEGATIVE COVID-19 RESULTS DONOT PRECLUDE COVID-2019 INFECTION ANDSHOULD NOT BE USED THE SOLE BASISFOR PATIENT MANAGEMENT DECISIONS. COMMENT [facility] THE [place] FDA HAS MADE THIS TEST AVAILABL EUNDER AN EMERGENCY USE AUTHORIZATION(EUA) FOR THE DETECTION AND/OR DIAGNOSISOF THE VIRUS THAT CAUSES COVID-19.THIS ASSAY AMPLIFIES AND DETECTS TARGETDNA USING WATER TREATMENT OPERATOR- MEDIATEDAMPLIFICATIONTESTING PERFORMED ON [employer] [facility] FIRST TEST [facility] EMPLOYED IN HLTHCARE [facility] of [facility] SYMPTOMATIC [facility] DATE OF SYMPT ONSET Lab [facility] [place] HOSPITALIZED [facility] [place] [facility] [place] CONGREGATE CARE SET Lab [facility] ID Date Data Source [id number] 08/25/2021 09:13:29 PM EDT [facility] of [place] SPEC EXP DATE 09/04/2021ATI ENT ABO/Rh A POSITIVEANTIBODY SCREEN NEGATIVETESTING SITE PERFORMED AT [address] [place] [id number] Name Value Range Interpretation Code Description Data Corrie rce(s) Supporting Document(s) TYPE AND SCREEN [facility] [place] PATIENT ABO/Rh A POSITIVE ID Date Data Source [id number] 07/08/2021 07:26:01 AM EDT [facility] Name Value Range Interpretation Code Description Data Corrie rce(s) Supporting Document(s) Progress Note [facility] UMHEIl8mWmUXDnVs24/FRGjhQGZri9UaOGvyDCs8TOhyIOLrP6TlNGR3rA6nVWD3WAxQLfArAxGpGXSe lbm [file] AgICAgICAgICAgICAgICAgICAgICAgICAgICAgICAg ICAgICAgICAgICAgICAgICAgICAgICAgICAgICAgICAgICAgICAgICAgICAgICAgICAgICAgICAgICAg YE8EDQWtBZQkOWCnHERyRJDjTJGmBSCnWBRdSOKaXIObCIMrWYMnEOYpEXYzVPCzTHDeCHAnAVJvHYPj ICAgICAgICAgICAgICAgICAgICAgICAgICAgICAgIC DcTRQhZHIfIRIqDU7JCDBcUYVjJZKtGSTmFLFzCJCyUZPxAIExEDBjIVQgOCKcVUEdLFArQFZvKJBkYK BgVOWpEJRuXYJoQWCbSNMfOZLgFHZtZIQnEJTuUCDeIVUmVKDcDNUhBMDlTPOiUDIhCHVwRY0VAOAkIQ AgICAgICAgICAgICAgICAgICAgICAgICAgICAgICAg ICAgICAgICAgICAgICAgICAgICAgICAgICAgICAgICAgICAgICAgICAgICAgICAgICAgICAgICAgICAg LPKfTX2VKKVoFPNcVHCvOJPeUBUnMUPfKJUmXPRrGTToBGPhVJDjGGAsTGFsIVRuLBYwFGSwKUIiCQBq ICAgICAgICAgICAgICAgICAgICAgICAgICAgICAgIC CaFSPoPXDhRFLaDPGzUK6HRJNaBHWyYFLgLWVbOPAcMZSsSXGeRHBbRNExYUCfFGPlGFLfGNCoTREyOL CrUMRlXLPyHFWkPHOtDAXaKGSgPJLtPERoWCJuUAYaGZKdYONgTCJaWKGgSFLaMYMeIZBdTLHfHU3IRK AgICAgICAgICAgICAgICAgICAgICAgICAgICAgICAg ICAgICAgICAgICAgICAgICAgICAgICAgICAgICAgICAgICAgICAgICAgICAgICAgICAgICAgICAgICAg BYMkBHJdGK6PAJRdDUIqDZNiJLRrXLOsJNMnFOYzAUNwAQPmZOGvOLYvHOCrOLAvTCSlZXSeASBdCBNw ICAgICAgICAgICAgICAgICAgICAgICAgICAgICAgIC FeTSHxYYEbPERcQGZwHOOaET9HSDEwYAYpXSXgMDRvGLUxQFOzPKQiKXUzXOCtOSVbGVRpMHKlKIVfAU AgICAgICAgICAgICAgICAgICAgICAgICAgICAgICAgICAgICAgICAgICAgICAgICAgICAgICAgICAgIA 8ONK18uOUbr4S4BAFzCA5lnol/Kp4TPIkbzpFrjHCe XE4WXkUcBY5mxd8DHlZkVA4qze3ZPGyVJaKpU4O6rPVfZAZyKJYNSrJkY46iAVfxIj18ZTjwQONhHjCy TIf5Km0HZwUaG9asUJMeFoZ2QOQvSiF9DZGmAqFuDSfwXH0Dx1RicEIaTHz+Fy3UKG7qc7DsBSqxSxCv BF3cty1MNIjFNhMeI6EbzdN0VJS8SRJhOb1VFQQlTP IgyTNoDGMiLIANQdSiC7OjzN29EUYFGq9+MLjymiClFyrUTgQ6UGNqq5FfIVq8XI0RGLJiYWh0mOEiUK EhK7Knx7GvHl24PXKkOohxUd1oOTB2SRDcR9jhph6lttzsUKBfFNNdOL9rLV8mCXAwZDGeUmJ0RAABAM 4JOBXrZXRpnRIrFQPwRFVIEJ5KNTifBVO2XDIcwhFu jPZrGKgdHI4EFWSkvhZcCdbuTIEYQMk+Me7UGF5ez4HjEGthLRUnPR8ydo3XAFfOZhMnG5C8sVJfO5O0 OGmyBr6GEHKwCSCfHyCkWLIHWCpsTC2GIR3xnpK9ZL0QbJNtXNAqHNYywQLbEUb3A23trWMwMOybTB6Y ICA+Tawanna+Lh9YZDZmHZPzDKPxDpQqRHZNTmReN2YeH0 TVr3CoT3ReSP77lBjpvtVaSYrlGQ5GXT5xYADxFGSJVY4UmTMmcQ7ojrUaSgLcUPNAVxKxR17puIQtYC XyFQK1LKObJx7JBLXuR1YjtdTwrFsogsUiDCUtCGUAKO6VWTosyyOxpBRksIatIU25uNscKK5CDc8AIm VlRD9ikh2WbPWkSn8NCKBiXU6JAKNwBWXxKKDmJBL2 RADlRuFdYRceNPHiWUQoYTN8GTMqQPRrUE7VQeLhGCEmXpX8RgXtYLEgKBQlaf7EUKRvVCNqUxA8ViXe GUMdFHYkPAbxTPGmGLLnAKZ0SVYxSAJyIX3KCjGoNBPsKMA2WkrpHZHyBBAcdy2YYSHkVTCgTbY4WUJj ABYuWKZoAEeoRCLrGDT0QmV2FCSsPYFwWT3RMiBkLH EaNYK5YTrmAJMjUBRzpo7HVBVlRMOhTkmsWWTaLGWcBODiYTjpGRKbPSG4OFG3NIJbQHWyOD5ZUgYwLY DtATbvYVPzIKKdWIExfo8AHRXaLXEfHJA7LOPzTMKbENJbIQtuCZEeMFA5QOU9OUBlKJRyME3KJjBoCF XhLJt9VaInTKEiKAUrkv0PQWNrUAAjEJY9OETsESMw IVYxVEhzWAZyMQBzUer2BDCxWESsXV5KQgItJBFvFjT2YQlzMAAjZJAesw3XEHVvJOUgWXy7GCWiQBLw PMInQTivVCGiXBEfPOm0VFEgPNYeKP2PLmRnAPAhZpG7ZzfjXPEkSCXtpz0PUHJzJFNtGkBoESPkGKTd CSSmVDplZMQpWRUaHaftTKQmBBLeTG4YXpImACHdIq YtNwZaAEUdQUXhki0BTVGlUAXlIMKoQqFnVHXzYERkIOpsNAOdBXC8FzRlFORuMCCsNH5MDyLeWUOzQb EcLzEiPKAdZEMicc0QLTWgUWIoEaI8KwOpATTnZANgQDetCBElGRV8SSW9QKObRWJtRF8WZlUgUUQxZr B0ARsmDGPqJQHbsj0EoPPjrRocvz4ZGGaPTg9PtEjo CHOxOIdqJq9ymGVlNLYvRKUKPl3OqpSxNENgWKXZGEwvUNUkNGAiYirfHYP7VdFcKZn1BVM1XhE3Ccum CqUkLZUjUXH9DfN5WMPoWEF6Wgp8OWOpRGZcFaUlFMNbZTSgHQIiAyD4HYv+TJ0oMPg+Ti7Ti4FfwjR0 clKnOZtoJwx7Nt1WZOEQZ1CLDv== ID Date Data Source [id number] 07/05/2021 06:59:07 PM EDT [facility] XR HIP- UNILAT, 2-3 VIEWS [id number] RE SULTInterpreted by:JOSTIN BrownVIS AND RIGHT HIP CLINICAL STATEMENT: Pain. Initial encounter.TECHNIQUE: 3 views of the pelvis and right hip. COMPARISON: 02/21/2021FINDINGS: No acute fracture or dislocation is identified.Moderate symmetric degenerative joint space narrowing is noted at both hip joints. The visualized soft tissues are within normal limits.A large calcified thyroid is noted within the pelvis.IMPRESSION:Moderate symmetric bilateral degenerative hip osteoarthritis.This document has been electronically signed by Josr Aviles MD on 07/05/2021 6:56 PM Name Value Range Interpretation Code Description Data Corrie rce(s) Supporting Document(s) ID Date Data Source [id number] 07/04/2021 10:54:23 AM EDT [facility] Name Value Range Interpretation Code Description Data Corrie rce(s) Supporting Document(s) Progress Note [facility] MRDVDc9nCxQFToZb14/LMCluDZVaw3WvULfrQHa7XUdzVRKzA7NyGRN9dN7jBUW9NAnRNdCxKxZkJZEu lbm [file] KD9QOGWFcsdGQINitpfGLAMNAMVDtKSndg3f7aWn5h TzXQRQffpk2tqOf37jX7hsTohFqs35Z2YZJSUbAnCpA7zXUNudz2FSaSewccQSJa5Lofp5SFrl7QbhOc QCTtJ404EMdL+Kpufeew52CZDpEWA56KRsbtsktawJk46/1Km8ZTZCrxJxGVLEESV/Fscf3QSj7COyLD Gzq16DKUtnrugQOj6VDiAa4BjavI+4DgSnWLtADkE6 PG49TyeYNWCxDjgeWc3WPmqyu35T8kXGjcYO1LFqnXR+kpDJCDZ4sbSBzOfDEnlTkvwb9bX1wYsqboFw b1cC5AY7ZO4upiD9T8tB69TismG+lMtzhnF8rvNnS2/dhrZ0/pTjpmvHHexP35y3qWZxb+LiTdx5mA+z L9I154xr861r0L99GeSlxCa6BEZ1lmOjncdnujxAsq VM+nG07oo9Ow2VA0SIvQZYcWSXmRKDbQI6S4wLnY+YNeZkAOGKBZ6uKPmUpsIRo3kNBfKYmK5Z8Jfgt7 HaRbsbk8p/ANmUJfXfDUUXXZismbgvx2O0yv/phKN1QJlEPyNu54C85Wj6hYnqi14VQJnRPsMmyJLGyF Up7pScvh59SZqwsd2742A7CKecYuwOrxgOrT5vqyt5 TszXl2TLruFxyrpr7kdF+E/ftE+JGgd6vVUc458oyQvyq7ftup5pOa0wxhk+YBLHBWmh9lUlGAX3904s DGx+94/B1g9nrSBp8jAOfGE+SoLOqAm9rNKKLgAb1O1QLFqdrS4iNKwyIdQSKxPtdR9CwaStYO6qsSbq dTgZ/Z03ZqBfHKo59Y1wV+SSjD0gxDdOxE2hnUg5H/ PYEecHb7aLA71bGMTKxWnnezg6esQ5oMP94siSR3xfr4ZOaLbX7ehhDV0qTuDqp2hUMM4qipAiejb+oG a0JFRMt8+Yh8FOKdM/WGjkog4nE3Buqdp/kmdLnQeCLTYWUFby5DvFJ1XFQ3MWRICNifGT/Sgu4azrNQ F9fpiqUS8pvZ9jV6XB0552G+[employer] Manager+rWVzcozEKUyV1eM [file] AgICAgICAgICAgICAgICAgICAgICAgICAgICAgICAgICAgICAgICAgICAgICAgICAgICAgICAgICAgIC AgICAgICAgICANCiAgICAgICAgICAgICAgICAgICAg ICAgICAgICAgICAgICAgICAgICAgICAgICAgICAgICAgICAgICAgICAgICAgICAgICAgICAgICAgICAg ICAgICAgICAgICAgICAgICAgICANCiAgICAgICAgICAgICAgICAgICAgICAgICAgICAgICAgICAgICAg ICAgICAgICAgICAgICAgICAgICAgICAgICAgICAgIC AgICAgICAgICAgICAgICAgICAgICAgICAgICAgICANCiAgICAgICAgICAgICAgICAgICAgICAgICAgIC AgICAgICAgICAgICAgICAgICAgICAgICAgICAgICAgICAgICAgICAgICAgICAgICAgICAgICAgICAgIC AgICAgICAgICAgICANCiAgICAgICAgICAgICAgICAg ICAgICAgICAgICAgICAgICAgICAgICAgICAgICAgICAgICAgICAgICAgICAgICAgICAgICAgICAgICAg ICAgICAgICAgICAgICAgICAgICAgICANCiAgICAgICAgICAgICAgICAgICAgICAgICAgICAgICAgICAg ICAgICAgICAgICAgICAgICAgICAgICAgICAgICAgIC AgICAgICAgICAgICAgICAgICAgICAgICAgICAgICAgICANCiAgICAgICAgICAgICAgICAgICAgICAgIC AgICAgICAgICAgICAgICAgICAgICAgICAgICAgICAgICAgICAgICAgICAgICAgICAgICAgICAgICAgIC AgICAgICAgICAgICAgICANCiAgICAgICAgICAgICAg ICAgICAgICAgICAgICAgICAgICAgICAgICAgICAgICAgICAgICAgICAgICAgICAgICAgICAgICAgICAg ICAgICAgICAgICAgICAgICAgICAgICAgICANCiAgICAgICAgICAgICAgICAgICAgICAgICAgICAgICAg ICAgICAgICAgICAgICAgICAgICAgICAgICAgICAgIC AgICAgICAgICAgICAgICAgICAgICAgICAgICAgICAgICAgICANCiAgICAgICAgICAgICAgICAgICAgIC AgICAgICAgICAgICAgICAgICAgICAgICAgICAgICAgICAgICAgICAgICAgICAgICAgICAgICAgICAgIC AgICAgICAgICAgICAgICAgICANCjw/bTNqB6vceYMy rvW2S4qdVp5UIn5JPK2nf4VqOLQtQWocmaLxQhoQWsSiPECxHdeFDja5ALtzIK7AaSHeT0GaH9KmOAig ZJ5JVEWrNOHolJHkEZKjUTYrIyX3KMTtTCgsRH8MwFLzFSoyTEGcEVWqUgSmDEAtGGJeIFKjXT2DQAIf Y691hrYwYx4AIp7BXcVwRI0lzj9EGrFxZNDuSmvNCp k0WChdSE5VmHXjrQApQGNlMDYSUaYsE5dby5CoSyVfGRFVHHnbHT8Ts8DbrAXgWNw+Lu4KRD8yt3EeWT jtSLElCS0xzq6KUDuQOuIiV9XemQdxBDOev8qaPDOaPE7yyQScIOE7QT5bwFLlAL6fFyVFlJCeAXoaQE EsLDXmSE4lEZ2yIAFyAHL2HfI5OPQLLN3YSQJqIZTj uSXvIBNuTGUWEE1ONKmlMOF3PLBjygMszPRxXBnjGW5ETJUubySkBpLkWDFLHQb+Ex2VEF0ac6ZyCUwo EWFdJS5opg9CZOnYSvKgK7D9wVQwZ1B3NDlcTk3ZLQQwGGKbWlFpXYKCBRunXU8IIR7yfiH6PZ2BkGNc FHSnNENdeCDiGQm8V18atOPhJQtiIY8GKGX+Tawanna+Pg 6ZSGHnBXUuXKHqOjAdKSLZUsQpK0UdB6HNc3RoM3YhVB78rAyfbtDiLGksKT0ACK8vAHXlMICBDK8BuW VxrF8ywqOgYkBjQCLDLzKvW38veBQcULZsWOHkMIJgPy8AGKEdP2VpgmRthTtcoaDzFWXlQPGDPT7UXG waqhDiqCPjtZzkWT09iIpaUS8LYb7JYxSbFU8hky8G qMSeAl5PRCAyPd5ILVUvWDLjONYoXTO9WYLlNzEvPSajTKGfEQIvLYQ1ZDMsMRSiXJ2JOvTvIOPfNsCl HrYhRCNlQLQmwi8BFOSwEJYdUhW9TYLkUDPdMOAlDToeZBWwLBIdOWN7BDHyKADaIG9BNnNgCPXzPBPc FnmfFEBiAJIxzd7YKATsVSNrYVY7BRBhBNDzNFEjYZ htIHSpTZQ0ULU7WKEwJMHzBI3GQrGgJJZyQLkuXEGwRRGoHGIjvq8YDZLsIKLyTWN3OVYhDVIrYZVbWB rcLBHqNCH5AoghZKCgKKNbZV5DSiGiWUHrEBOtPUSsYTUqHWKlgk9FWMDlYNRhCLB8TCOmALHzJVIfXZ bmSLZvNKOoAgGlMYNmLBBdJA3WCdUmZULrXFV2WXAj HHTzKQPnjk5GFGGfINZyFLx6QWElSJAaFDBjESiqPBXuNHXqWGvxGALzQDUlMJ7KAwPvSPVeSrM3Hssy YVAqPWLjwb9YLNFeRDJgDxv9VyXgOTIaOVFuXHesKKHySUEnAPRsBEBhQKTmGV9ZWuAvITQyXtVcMXAw OXCfYIKrar2UIFGwGNVpQIC9GFVcPFNyJJKuFEtwUU QfXXA2ZtD6SEKcAWOqEI1QPpGeJAShRuRdTFnaSIZxIQBxhm6FGJPyXISjWyY8UOOkLZRuRPLpOPgjFP SoODX7NSZqOUShHQSkFU8MPpMhZRqoOCCVAsb2WFifL7c4ZBSwLv5CL8Fws7FxYsCrCIPXAAklVT7ydo NfOHMbGm0AP7gCRwloXQFeDPP7JlO4NASqPLZnCTVr TZWqH2H6VgEvPJGbMy8kYHD0CZO6Vbj0WkqgFLMbMWY9TMFsHVDuEiW5YmA8AHVaAqIhUB8KMs4DQnW2 NZC3bHVgAh8UOtN3FhBYKfFgBG6JTOz= ID Date Data Source [id number] 06/02/2021 11:11:36 AM EDT [facility] Name Value Range Interpretation Code Description Data Corrie rce(s) Supporting Document(s) Progress Note [facility] TWIQGy4mGgUXKnTr60/ABMvbHUJgv3NgWHuiEGw0OAojEFKsD1DpTNO6oW2fWYD5BCtASxBdMzXrOcB9 lbm [file] AgICAgICAgICAgICAgICAgICAgICAgICAgICAgICAg ICAgICAgICAgICAgICAgICAgICAgICAgICAgICAgICAgICAgICAgICAgICAgICAgICAgICAgICAgICAg ICAgICAgICANCiAgICAgICAgICAgICAgICAgICAgICAgICAgICAgICAgICAgICAgICAgICAgICAgICAg ICAgICAgICAgICAgICAgICAgICAgICAgICAgICAgIC AgICAgICAgICAgICAgICAgICANCiAgICAgICAgICAgICAgICAgICAgICAgICAgICAgICAgICAgICAgIC AgICAgICAgICAgICAgICAgICAgICAgICAgICAgICAgICAgICAgICAgICAgICAgICAgICAgICAgICAgIC ANCiAgICAgICAgICAgICAgICAgICAgICAgICAgICAg ICAgICAgICAgICAgICAgICAgICAgICAgICAgICAgICAgICAgICAgICAgICAgICAgICAgICAgICAgICAg ICAgICAgICAgICANCiAgICAgICAgICAgICAgICAgICAgICAgICAgICAgICAgICAgICAgICAgICAgICAg ICAgICAgICAgICAgICAgICAgICAgICAgICAgICAgIC AgICAgICAgICAgICAgICAgICAgICANCiAgICAgICAgICAgICAgICAgICAgICAgICAgICAgICAgICAgIC AgICAgICAgICAgICAgICAgICAgICAgICAgICAgICAgICAgICAgICAgICAgICAgICAgICAgICAgICAgIC AgICANCiAgICAgICAgICAgICAgICAgICAgICAgICAg ICAgICAgICAgICAgICAgICAgICAgICAgICAgICAgICAgICAgICAgICAgICAgICAgICAgICAgICAgICAg ICAgICAgICAgICAgICANCiAgICAgICAgICAgICAgICAgICAgICAgICAgICAgICAgICAgICAgICAgICAg ICAgICAgICAgICAgICAgICAgICAgICAgICAgICAgIC AgICAgICAgICAgICAgICAgICAgICAgICANCiAgICAgICAgICAgICAgICAgICAgICAgICAgICAgICAgIC AgICAgICAgICAgICAgICAgICAgICAgICAgICAgICAgICAgICAgICAgICAgICAgICAgICAgICAgICAgIC AgICAgICANCiAgICAgICAgICAgICAgICAgICAgICAg ICAgICAgICAgICAgICAgICAgICAgICAgICAgICAgICAgICAgICAgICAgICAgICAgICAgICAgICAgICAg ICAgICAgICAgICAgICAgICANCjw/nYZdX5oxaLNaeuT4E6oyFh0IYy7ANH7bu1MeTVDoSZkueiDbNuhL IbVlYICbRwiTLte0MYslOQ8LbBGnI6NyT1HgUNfiDI 8HLPIdBJHhsUKcPDElQPKhUgH1OUSaVVkqTY6JyKRwYZctHNHfLZDqUlPuXXUeRZ1LDXPiE380byBxQm 4YIt1KNdAvRD7ndb8LWlToADSzAlxMRct8DVhsCY7TvYXhxUHvNXZfUEBRQaGgX2pfb1SfTxBeFTIARU vhAY4Rz1MfsJMnRJf+Bm5AKF7en9UcKXywWPWcPT1d rz2XSRrWEuYrP0PxiHqzNECgx5woMLOrND3syCKhUKL6TQB8QX6wNRPNm36wi0wmzZyxFREdCODmCh4q OZ1zGJLnVZBsZjNdOKQGNV0VRRZaBYBxzQMdVUNyEOUNXK0RXHinGTZ0EQVrzkSkkRHgMFfnRK4WPCJz bnQgMjQgMCBSDQo+Zn6DXZ8to0OcBDeuDiCnNQ6ttv 8CWLpDUqZsR9I8cLFtM8Q6KLadBl2WJKNlJQEoLzRyAEFJYSurXI8PVN5qriH9DU9JvWNuHVArHTUcgY TqQRn2O13xqNRsKAkkXY0NUYU+Tawanna+Ns5LLWXzYIVuSNFtQbJnOLMGBsHxV8QfQ3WEz0FlI1EtTC27kF zmmdQbSDxcLI9HLW1mNQMwPCIVKH5EhEWokT3dxlNu ODDpEBNVIzNpO49erQJxJWRzPGLuTUQvEc2QFQGvH0QytnCntNokgwUrTADwRBZCVR2MSDihgpZetYJn sComNG78tCtdBW7DQh3BGdUuTC7vdq0PgLDuTq1SSMKdTe8LMDTiUEYdNDAcXDS5WMMtCcBqVFgyJMCz CAPgDYT1XIJlCJZmMJ1ZMnYsVFKuVbH4WhGjXHByPV Dufw4VKSGjNPNpHRK0KZCjXATqSRIkKXknEMNcTJXtXPR3QCWzYAGaQE5SRyBfKDFrSHE3IkgeVBDdXE Csiw7HTJRqHCGnLTN3UvJfDVXwQDKvJSfnCXVnPOW6CDN6FXXuENVuLE3ZHcTkKWXuHWxkUWieHQGeCU Gicc7QZBQbUJHaQUKlStOoDQBtGGClBAphLTHpQLP2 NnQaFAQqYOEjDF1OSdTkZOUtKDb6BQBwIAAwQDTumz1VNHFiWASsXFB7XnRhKWPyLRBrXTafGPOeKDX9 ScN9HIMiGWTwRP5LNsDuGPOyZRz3URUhICPsREFcxg8PTYTmJYBjAUD5FfHcDRIhRDDyILcyBJDiUQXu EOs4BZZhBWCoOY6WNqQoDXLdBeG9LZtiCODcEJUuys 8SRKUkSJTdSwL2KiSgPCZfCVByKTdmWKAmAOAgKbTjOJJyVYDjGR0PRwRoHHWrIsUwEJgvWPUlSZZgfo 4CHSJmXRKwVnJdSRKeVKZxRBXxSRbqEATzVEIzMBIfFWPrSZRpQZ9FFwKvGJLjFeO4QiIrBPAjVYQikr 3PHHJwPKDjXSJ7QKJaSHMnNBFoUDtjZKAmLFC2XMG0 ARGoFNVpDE2HXrUiYAEnCeF6XVWiFOLvBKRtjh6DiAQqqWcpqo5RILoLDb9IlByeVJC0QQdfGt3sqAUd IpAeCYYWJr1FacGyMKKmMOCOJRwjEFKhBBSdY6Q1ROKvEqQ0SrV4UIW6XUZ2HGKlMVJlRPUlPWY3PrR3 LAH9WHn5OLMaNpfcWkD5FVYgEAZ9TNScAEWbQUF7Qu Q+KZ2kEBu+Lf3Nv1CjkvI0opLpXJfbPMwxFR4SSZRMA8YPIb== ID Date Data Source [id number] 05/26/2021 02:21:03 PM EDT [facility] MR EXTREMITY LOWER JOINT WITHOUT CONTRAS T [id number] RESULTInterpreted by:Je Holliday MDEXAM: MRI Right Hip without ContrastHISTORY: Right hip pain, degenerative joint diseaseCOMPARISON: MRI right hip 08/08/2018, hip radiographs 04/29/2018TECHNIQUE: Multiplanar multisequence MR imaging of the right hip was performed, using large ykcmb-dp-yzks pelvis and dedicated small xhpbh-ug-onkj right hip imaging. Intravenous gadolinium contrast was not administered. Exam was performed on a 3.0 [employer] MRI unit. FINDINGS: No pelvic or proximal femoral fracture or stress fracture. No aggressive marrow lesion. Stable intermediate signal nodular intramedullary foci within the proximal femoral diaphyses are compatible with red marrow reconversion changes.No evidence of femoral head avascular necrosis. There is interval worsening superior right femoral head and acetabular near full-thickness articular cartilage loss, with interval progression of few small subcortical cysts within the superior and supe rior medial acetabulum. Nondisplaced chronic posterior and superior right acetabular labral tear is seen with progression of adjacent subcortical cystic change. Moderate right hip joint effusion and small degenerative marginal osteophytes.Small left hip joint effusion is also seen with nondisplaced left posterior and superior labral tear.Small partial-thickness left common hamstring origin partial-thickness tendon tear is seen. No tendon avulsion at the remaining visualized tendon origins and insertions are intact. Minimal bilateral trochanteric bursitis.Mild pubic symphysis osteoarthrosis. Rectus abdominis- adductor aponeurosis is intact. No muscle body atrophy.Few hypointense signal uterine fibroids are redemonstrated, with dominant 5.8 x 5.9 x 5.6 cm midline uterine fibroid, overall stable.IMPRESSION: 1. Interval progression of moderate right hip osteoarthrosis with worsening high-grade articular cartilage thinning and progressive subchondral cystic change.2. Nondisplaced bilateral posterior-s uperior labral tears, with moderate right and mild left hip joint effusions.3. Low-grade partial-thickness left common hamstring origin tendon tear. No tendon avulsion.4. No significant interval change in few hypointense signal uterine fibroids measuring up to 5.9 cm in length. See full discussion above.This document has been electronically signed by Je Holliday MD on 05/26/2021 2:18 PM Name Value Range Interpretation Code Description Data Corrie rce(s) Supporting Document(s) ID Date Data Source [id number] 05/11/2021 10:24:34 AM T [facility] Name Value Range Interpretation Code Description Data Corrie rce(s) Supporting Document(s) Progress Note [facility] NGVJPv6oFdLXEwXi24/NFFnfVQJez8CzYOgvDHl1ITbeYTUhH6MlSRG4tS9uSPY2EGgMPrEeOaFtKsK5 lbm [file] VPRg0K ID Date Data Source [id number] 03/31/2021 01:31:32 PM EDT [facility] IR IMAGE GUIDED NEEDLE DRAIN PROCEDUREFI NAL RESULTInterpreted by:DAREN CentenoROCEDURE: Right Hip Injection.HISTORY: Right hip joint pain.TECHNIQUE:Attending Physician: Patria Walker MDFehemant Physician: noneResident Physician: noneFluoroscopy Dose: 8 seconds, 4 mGyPrior to the start of the procedure a "Timeout" was called, confirming the patient by name, medical record number and date of , and the procedure to be performed was confirmed. All procedural staff within the room are in agreement.PROCEDURE/FINDINGS:The patient was positioned supine on the table with the right leg in slight internal rotation. Varnish [employer]ender fluoroscopic images demonstrates normal alignment.Utilizing sterile technique with fluoroscopic guidance and local anesthesia a 22-gauge spinal needle was advanced over the lateral femoral head-neck junction until bone was encountered. A small amount of contrast was injected, confirming the needle to be intra-articular in location. 8 mL of 1% Lidocaine and 80 mg of Depo-Medrol was then injected into the joint space. The needle was withdrawn, hemostasis was obtained, and a small sterile bandage was placed over the puncture site.The patient tolerated the procedure well without immediate complication.IMPRESSION: Status post right hip injection.This document has been electronically signed by Patria Walker MD on 03/31/2021 1:29 PM Name Value Range Interpretation Code Description Data Corrie rce(s) Supporting Document(s) ID Date Data Source [id number] 03/29/2021 03:17:42 PM EDT [facility] Name Value Range Interpretation Code Description Data Corrie rce(s) Supporting Document(s) Progress Note [facility] RWSQKe2zUkOWZiRo85/OMRkmEDHqr6ViBHchMXt9JRtvGLSgY4JmIJW1jU2fOKG8BOxDDtVaFbFjLJG1 lbm [file] AgICAgICAgICAgICAgICAgICAgICAgICAgICAgICAg HXDbKKWuWZFmOKFmCBFtGNQqLQVdOPDfZKUhYKLrMEXhXPVlEYPoJQCjRAOuCYNkGRJbZBWcVC6CFVYr ICAgICAgICAgICAgICAgICAgICAgICAgICAgICAgICAgICAgICAgICAgICAgICAgICAgICAgICAgICAg ICAgICAgICAgICAgICAgICAgICAgICAgICAgICAgIC DdSUWqVO3NJTGvBGQaTGTkJPLcUOAgVLNzCMMvMENcJYUlHZZqOMJtZLBoDCTpOCQzZNIwVPXxCLZhFW JrDLKyIDYjHNWwRZYrRYMnAOTpWJCzKVHoKDLvFBHbVEJcRIUxDZFjUNEuYYRbYF9TQCDsZPMyYCYwIB AgICAgICAgICAgICAgICAgICAgICAgICAgICAgICAg NROcVGQqHYEuHRXgPUZrGVPcEZAvUOSyHWLxYTNpGHReURFcHHSzYCFkMPByEVScSJBnQMHnLVHlVW1K ICAgICAgICAgICAgICAgICAgICAgICAgICAgICAgICAgICAgICAgICAgICAgICAgICAgICAgICAgICAg ICAgICAgICAgICAgICAgICAgICAgICAgICAgICAgIC JiRNWbLKBwDQ7LCVEqPLNmIQQeBFKqLEKhPWIpWGGrEZFlPXNiGZPkBWAgVJUxUTWgWYSlRFVzHXMgPX VqWWFtWYInDDNlMMKhVQDsIJQlSIAuACKuTLUtXKWpXXQyXZBbRQWbRFOhBDOpAQFoEG3FMWXfOTCdMF AgICAgICAgICAgICAgICAgICAgICAgICAgICAgICAg ICAgICAgICAgICAgICAgICAgICAgICAgICAgICAgICAgICAgICAgICAgICAgICAgICAgICAgICAgICAg SY4HAHXgGDKrFRDmMFUtMCGsUHYhLIXwMWWbPHXnPZDuUCBzEJRjRPNgIAFiEJXlVEHfIIIgXCWgQCPl ICAgICAgICAgICAgICAgICAgICAgICAgICAgICAgIC MwJAPpVBFcRXUkNF2EQQSvAJMdFVBvYFAgTYNwEDAzIVMvFBFlJBOgZXMsFIMnPWNrCWQoLIMaWAFiFX EhNOGePRJmATHsPCLqBRNiCMAhEYIuWTClKWCtSZZtUKGzOGOpGJLqHMTuIDAvJTJmYXRwHH9LPZ83sA Mqm4Y2PWWfXN9knbk/Ls9RCUqxnkCorLKnBP6LLzKz TQ3tdo5PExCpDL3iqj1JITyNXqDjZ8E2kIHzNGOuPPESEtUnV25xAYmfYz78QPqgHHKvJxGdGWj8Se6I NaPtU0ksYZCzWwQ6LXRuRaJuUFzdNO9Vg5HknTMpZCg+Ad3TJB5pc4NzKXnpSXLwYV5onq4TDOeFFfXm E8VivvY7YBNdUYRsZh0XBIUsABEurNOiMEToOHIVWj GnI7TjqD29ROFQGm4+SSlixdBsUcaBStTwQSLwt0CoPXr5LQ8MYUExUOz0xPJiYZRwA9Odl4PpAc90FJ VyCcrjP0IyMSzrRmZRaCWwiCXmzEkwUo2oIMUqJH9sTO5fQYIjCXQcSzFvGINXJX2WGRNwGCNycZUaSH NrCHMFHD7BHGskMQM8FYLqowUvvZDuXOorWB4SVPBs bnQgMTkgMCBSDQo+Wu3PBP0fc3YpPLzlVBHoRQ8yry3WNSoYYpHiV9M6yYEiJ0V7DRtvOw5ZYSLkCSQi PImgSSLCAVqhID2JJA4aceT4OW7DaTLtBAWpJVYtjXKxHYq1W08qrIFcBSclRF0SZDQ+Tawanna+Hb9YISGa RFSkYCIeFkUdSCEWVpErS8McS3ZIf5EpI9WhKZ66cT upyfOcJLdrNR1SPL9tXUJwRFNSTF7EkVIdiH5nmfXgUBKrTDSAQzBqV18tcNBbGXLkAIT9NISoXn7ZPI KuG7XmyzElwGnmxkHeZUWtBNDDZP4KOUfezgTbhPKusBjhNN84cQgaJI5ELh5PBmGmMR7zjr0WnLNkNb 1JOSKdKu5LCRMgHDJtXBXsYUI9HXGdDkAqBEbkLWBs EKQcVWM4EKQwXQHfNZ7WKmBgDJQlBCrxAdweCJRnDFTgxb0URXDuCZLrGVE6ICHzCHHdNKNwPUspTXGz GZPdQYE5ZEQvDQTyPN9JGxPbAKYdZHSjFRMhFTJwMYKfre0MQTUrIRMwFiMeDvGuYCCwTFYhLEeqKDNl IQLmAaH9EIVcFYSgHM6KJrXhCCUmPPU3UiEmIDTdJB Qqye6AGTSwEDAiPpf2JcXiQIEvBDZsDUgfMRFeZTM6EiVtNSBjEQWlCK9BXzHuJNIkYJT4TRLgLDVtSF Pmtu5VCEXqEBWpKRN6QYUpZOLsWOEyIKupGIUiBWG0RXE8CMIdGDKkRQ4YJpBnZDCwBQS4HtJeQTGeQW Vhjw0TSEDtMTBcIaf0YZGoBJMyMUGiAMeuUSZbXSC1 BvP5TXLiKXUlLB0OKnZiNUInSLnaSKSwJEZnJKGlhx3TBZUkYIOrBqy5DEKcYLGdZKClVCxlDMLpCWR3 VFnmGLNfYQRyUK3PNsSfMMZmSQcbVkLtNXGgQTJbnf5GRBRhTDFnEKVzLDFbJFVdDWNxTYa3pzNhdBYf LBo0IA6JW2XzxsMbBiVRJi7Tk589TFPoNEHxYh2RT0 wzUl1iPNKsEKIUPv1XMTc9EYU6ScmeL3ZbAUD5UmO4SBI3AHCmDLU9QlX0Qkx0WlL+STg4DMa2NGAtTJ Z6WfUmCaStBGHaFXHrJwg4FXm0WrajOr8wHREPUm7+WHcffMYzwApoRDFQSnF3DvA0KIqaJMHWBs1R ID Date Data Source [id number] 03/29/2021 03:17:00 PM EDT [facility] Name Value Range Interpretation Code Description Data Corrie rce(s) Supporting Document(s) SARS-CoV-2 RNA 2019 nCoV Real-Time RT-PCR: NOT DETECTED [facility] This lab was ordered by [facility] and reported by [facility]. ID Date Data Source [id number] 03/30/2021 05:27:28 PM EDT [facility] Name Value Range Interpretation Code Description Data Corrie rce(s) Supporting Document(s) Specimen source [Identifier] of Unspecified [facility] SARS-CoV-2 RNA 2019 nCoV Real-Time RT-PCR: NOT DETECTED [facility] Assay Performed [facility] Patients first test for condition [facility] Patient employed in healthcare setting [facility] Patient has symptoms related to condition [facility] When did you start to experience these symptoms [Date and time] [Phen X] [facility] Patient was hospitalized because of this condition [facility] patient was admitted to ICU for condition [facility] Patient resides in a congregate care setting [facility] status [facility] ID Date Data Source [id number] 02/22/2021 09:42:20 AM EDT [facility] Name Value Range Interpretation Code Description Data Corrie rce(s) Supporting Document(s) Progress Note [facility] KMAAHp8aKlCZSbTc71/CJKfyKWJfk7EuVZviPHb9YHylNLPnR4PoJBP8sA4aVBN3DJcKGhSxTgXbAKZx lbm [file] X9MWM2P3PyEea3JYOdKPJ9MiZuEeWfWR0UUv0FLpX8ANX9fZGcCb3GFLA8WDaBPcNmES6JBXj= ID Date Data Source [id number] 02/21/2021 06:19:09 PM EDT [facility] XR HIP- UNILAT, 2-3 VIEWS [id number] RE SULTInterpreted by:JOSTIN BrownVIS AND RIGHT HIP CLINICAL STATEMENT: Pain. Initial encounter.TECHNIQUE: 3 views of the pelvis and right hip. COMPARISON: 08/21/2019FINDINGS: No acute fracture or dislocation is identified.Moderate degenerative joint space narrowing noted at the right hip joint. The visualized soft tissues are within normal limits.A large calcified uterine fibroid is noted. An IUD is present.IMPRESSION:Moderate degenerative right hip osteoarthritis.This document has been electronically signed by Josr Aviles MD on 02/21/2021 6:16 PM Name Value Range Interpretation Code Description Data Corrie rce(s) Supporting Document(s) ID Date Data Source [id number] 11/08/2020 10:17:00 AM EST [facility] Name Value Range Interpretation Code Description Data Corrie rce(s) Supporting Document(s) SARS coronavirus 2 RNA Not Detected [facility] This lab was ordered by [facility] [facility] and reported by [facility]. Procedure Social History Code Duration Value Status Description Data Source(s ) Alcohol intake 07/08/2021 12:00:00 AM EDT Current non-d inga of alcohol (finding) completed Current non-drinker of alcohol (finding) [facility] Tobacco use and exposure 07/08/2021 12:00:00 AM EDT Never used co mpleted Never used [facility] Smoking 07/08/2021 12:00:00 AM EDT Never smoker completed Never s [facility] Alcohol intake 07/04/2021 12:00:00 AM EDT Current non-d inga of alcohol (finding) completed Current non-drinker of alcohol (finding) [facility] Alcohol intake 06/02/2021 12:00:00 AM EDT Current non-d inga of alcohol (finding) completed Current non-drinker of alcohol (finding) [facility] Smoking 05/12/2021 12:00:00 AM EDT Patient has never smoked co mpleted Patient has never smoked [facility] ([facility]) Alcohol intake 03/31/2021 12:00:00 AM EDT Current non-d inga of alcohol (finding) completed Current non-drinker of alcohol (finding) [facility] Alcohol intake 02/21/2021 12:00:00 AM EDT Current non-d inga of alcohol (finding) completed Current non-drinker of alcohol (finding) [facility] Smoking 01/27/2021 12:00:00 AM EDT Patient has never smoked co mpleted Patient has never smoked [facility] ([facility]) Vital Signs ID Date Data Source UNK Name Value Range Interpretation Code Description Data Source(s) Systolic blood pressure 121 mm[Hg] 121 mm[Hg] M [facility] ([facility]) Diastolic blood pressure 75 mm[Hg] 75 mm[Hg] [facility] ([facility]) Heart rate 62 /min 62 /min [facility] ([facility]) Body height 69.5 [in_i] 69.5 [in_i] [facility] ([facility]) 5'9.50" Body weight 199.25 [lb_av] 199.25 [lb_av] MEDEN T ([facility]) Body mass index (BMI) [Ratio] 29.0 kg/m2 29.0 k g/m2 [facility] ([facility]) Oxygen saturation in Arterial blood by Pulse oximetry 99 % 99 % [facility] ([facility]) Body weight 198.25 [lb_av] 198.25 [lb_av] [facility] T ([facility]) Body mass index (BMI) [Ratio] 29.4 kg/m2 29.4 k g/m2 [facility] ([facility]) Heart rate 65 /min 65 /min [facility] ([facility]) Respiratory rate 16 /min 16 /min [facility] ( [facility]) Body temperature 98.6 [degF] 98.6 [degF] [facility] ([facility]) Systolic blood pressure 120 mm[Hg] 120 mm[Hg] M [facility]ENT ([facility]) Body height 68.9 [in_i] 68.9 [in_i] [facility] ([facility]) 5'8.90" Diastolic blood pressure 78 mm[Hg] 78 mm[Hg] [facility] ([facility]) Oxygen saturation in Arterial blood by Pulse oximetry 98 % 98 % [facility] ([facility]) [place] body weight 140 [lb_av] 140 [lb_av] [facility] T ([facility]) Body mass index (BMI) [Ratio] 28.8 kg/m2 28.8 k g/m2 [facility] ([facility] Body weight 198.12 [lb_av] 198.12 [lb_av] [facility] T ([facility] ) Heart rate 60 /min 60 /min [facility] ([facility] ) Body temperature 97.5 [degF] 97.5 [degF] [facility] ([facility] ) Body height 69.5 [in_i] 69.5 [in_i] [facility] ([facility] ) 5'9.50" Systolic blood pressure 120 mm[Hg] 120 mm[Hg] M [facility]ENT ([facility] ) Diastolic blood pressure 84 mm[Hg] 84 mm[Hg] [facility] ([facility] ) Systolic blood pressure 122 mm[Hg] 122 mm[Hg] M [facility]ENT ([facility] ) Diastolic blood pressure 80 mm[Hg] 80 mm[Hg] [facility] ([facility] ) Heart rate 55 /min 55 /min [facility] ([facility] ) Body height 69.5 [in_i] 69.5 [in_i] [facility] ([facility] ) 5'9.50" Body weight 199.00 [lb_av] 199.00 [lb_av] [facility] T ([facility] ) Body mass index (BMI) [Ratio] 29.0 kg/m2 29.0 k g/m2 [facility] ([facility] ) Oxygen saturation in Arterial blood by Pulse oximetry 98 % 98 % [facility] ([facility] ) Diastolic blood pressure 74 mm[Hg] 74 mm[Hg] [facility] ([facility]) Body height 68.9 [in_i] 68.9 [in_i] [facility] ([facility]) 5'8.90" Body weight 195.00 [lb_av] 195.00 [lb_av] [facility] T ([facility]) Body mass index (BMI) [Ratio] 28.9 kg/m2 28.9 k g/m2 [facility] ([facility]) Systolic blood pressure 126 mm[Hg] 126 mm[Hg] M [facility]ENT ([facility]) Heart rate 85 /min 85 /min [facility] ([facility]) Respiratory rate 18 /min 18 /min [facility] ( [facility]) Body temperature 98.9 [degF] 98.9 [degF] [facility] ([facility]) Oxygen saturation in Arterial blood by Pulse oximetry 99 % 99 % [facility] ([facility]) [place] body weight 140 [lb_av] 140 [lb_av] [facility] T ([facility]) ID Date Data Source [id number] 03/31/2021 11:18:20 PM EDT [facility] Name Value Range Interpretation Code Description Data Source(s) WEIGHT RECORDED [address] [facility] Body height Measured [address] [facility] PREFERRED NAME [facility] ID Date Data Source [id number] 03/30/2021 05:27:38 PM EDT [facility] Name Value Range Interpretation Code Description Data Source(s) PREFERRED NAME [facility] ID Date Data Source [id number] 03/01/2021 02:45:49 PM EDT [facility] Name Value Range Interpretation Code Description Data Source(s) PREFERRED NAME [facility] ID Date Data Source [id number] 03/01/2021 02:44:45 PM EDT [facility] Name Value Range Interpretation Code Description Data Source(s) PREFERRED NAME Sarah [facility] ID Date Data Source [id number] 03/02/2021 08:11:02 AM EDT [facility] Name Value Range Interpretation Code Description Data Source(s) PREFERRED NAME [facility] PREFERRED NAME Sarah [facility] ID Date Data Source [id number] [facility] Value Range Interpretation Code Description Data Source(s) [facility] Patient Treatment Plan of Care Planned Activity Planned Date Details Description Data Source (s) Levothyroxine Sodium 0.075 MG Oral Tablet [Synthroid] 03/21/2021 12:00:00 AM EDT [facility] ospital azelaic acid 150 MG/ML Topical Foam [Finacea] 01/12/2021 12:00:00 A M [facility]
--- OUTSIDE RECORDS SUMMARY | 2021-09-22 19:37 | CCD | Summary of Care ---
Author Author [facility] Address Unknown Phone Unavailable Care Team Providers Care Supervisor Beet End Name Role Phone Katie Finley DO PCP Encounter Details Care Team Description Date Type Department Pam Schreiber, RDMS [address] [place] [address] Uterine leiomyoma, unspecified location; Urinary frequency 07/19/2021 Procedure visit [facility] [address] [place] [address] Allergies No Known Active Allergiesdocumented as of this encounter (statuses as of 07/19/2021) Medications End Date Status Medication Sig Dispensed Refills Start Date Active fluticasone (FLONASE) 50 INHALE 2 0 12/18 MCG/ACT nasal spray SPRAYS INTO 7 EACH NOSTRIL ONCE DAILY Active Finacea 15 % External APPLY TO FACE 0 01/13/20 2 Foam ONCE DAILY 1 FOR ROSACEA Active Synthroid 75 MCG Oral TAKE 1 TABLET 0 03/21/20 2 Tablet BY MOUTH ONCE 1 DAILY WITH WATER. 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 Mirena IUD inserted 05/2017 for heavy me nses with known fibroid uterus. Plan to leave in place for 5-7 years, check FSH to confirm menopausal status prior to removal. Cervical radiculopathy 01/23/2017 Subscapular pain 01/23/2017 documented as of this encounter (statuses as of 07/19/2021) Immunizations Name Administration Dates Next Due documented as of this encounter Social History Date Tobacco Use Types Packs/Day Years Used Never Smoker 0 Smokeless Tobacco: Never Used Comments Alcohol Use Standard Drinks/Week No 0 (1 standard drink = 0.6 o z pure alcohol) Sex Assigned at Date Recorded Not on file Date Recorded COVID-19 Exposure Response 07/19/2021 2:45 PM EDT In the last month, have you been in contact with No / Unsure someone who was confirmed or suspected to have Coronavirus / COVID-19? documented as of this encounter Last Filed Vital Signs Not on filedocumented in this encounter Plan of Treatment Care Team Description Date Type Specialty Elsie Jauregui MD [address] [place] [address] [phone] 09/01/2021 Hospital Surgery Encounter Health Maintenance Due Date Last Done Comments MMR Vaccines (1 of - 1967 Standard series) Varicella Vaccines (1 of 1967 2 - 2-dose childhood series) HIV Screening 1979 Colon Cancer Screening 10 2016 yrs DTaP,Tdap,and Td Vaccines 09/20/2016 08/23/2016 (2 - Td or Tdap) Influenza Vaccine 08/05/2021 10/11/2019, 08/19/2018, 08/23/2017, Additional history exists Cervical Cancer Screening 05/30/2022 05/30/2017 5 years Breast Cancer Screening 2 06/15/2023 06/15/2021, years 10/16/2019, 08/14/2018, Additional history exists Pneumococcal Vaccine: 65+ 2031 Years (1 of 1 - PPSV23) COVID-19 Vaccine Completed 01/16/2021, 12/26/2020 HIB Vaccines Aged Out No longer eligible based on patient's age to complete this topic Hepatitis A Vaccines Aged Out No longer eligibl e based on patient's age to complete this topic Hepatitis B Vaccines Aged Out No longer eligibl e based on patient's age to complete this topic IPV Vaccines Aged Out No longer eligible based on patient's age to complete this topic Pneumococcal Vaccine: Aged Out No longer eligib le based on patient's age to Pediatrics (0 to 5 Years) complete this topic and At-Risk Patients (6 to 64 Years) documented as of this encounter Results Not on filedocumented in this encounter Visit Diagnoses Diagnosis Uterine leiomyoma, unspecified location Urinary frequency documented in this encounter
--- OUTSIDE RECORDS SUMMARY | 2021-09-22 19:37 | CCD | Continuity of Care Document ---
Author Author Lizzyid-19 Testing, Sarah Organization Unknown Address [address] [place] [address] Phone [phone] Care Team Providers Care Compressor Service Technician Name Role Phone Elsie Jauregui MD AUT[facility] Unavailable No PCP [facility] Unavailable Problems Description No Information Available Social History Type Date Description Comments Sex Unknown Allergies and adverse reactions Description No Information Available Medications Description No Information Available Immunizations Description No Information Available Vital Signs Description No Information Available Results Description No Information Available Procedures Date Code Description Status 08/29/2021 42495 Office/Outpatient Established Mi nimal Problem(S) Completed Medical Devices Description No Information Available Encounters Type Date Location Provider Dx Diagnosis Office Visit 08/29/2021 10:00a [facility] Covid-19 Testing Z20.822 Contact with and (suspected) exposure to Covid-19 Assessments Date Code Description Provider 08/29/2021 Z20.822 Contact with and (suspected) exp osure to Covid-19 Taiwo Napier MD 08/29/2021 Z20.822 Contact with and (suspected) exp osure to Covid-19 Covid-19 Testing Plan of Treatment No Information Available Functional Status Description No Information Available Mental Status Description No Information Available Referrals Description No Information Available
--- OUTSIDE RECORDS SUMMARY | 2021-09-22 19:37 | CCD | Summary of Care ---
Author Author [facility] Organization [facility] Address Unknown Phone Unavailable Care Team Providers Care Geography Department Chair Name Role Phone Katie Finley DO PCP Reason for Visit * Reason Comments Follow-up Right hip pain Encounter Details Care Team Description Date Type Department Marcial Oreilly MD [address] [place] [address] Arthritis of right hip (Primary Dx) 07/05/2021 Office Visit [facility] , [facility] [address] [place] [address] Allergies No Known Active Allergiesdocumented as of this encounter (statuses as of 07/08/2021) Medications End Date Status Medication Sig Dispensed [...] as of this encounter (statuses as of 07/08/2021) Active Problems Problem Noted Date Uterine leiomyoma [...] as of this encounter (statuses as of 07/08/2021) Immunizations Name Administration Dates Next Due documented as of this encounter Social History Date Tobacco Use Types Packs/Day Years Used Never Smoker 0 Smokeless Tobacco: Never Used Comments Alcohol Use Standard Drinks/Week No 0 (1 standard drink = 0.6 o z pure alcohol) Sex Assigned at Date Recorded Not on file Date Recorded COVID-19 Exposure Response 07/04/2021 9:39 AM EDT In the last month, have you been in contact with No / Unsure someone who was confirmed or suspected to have Coronavirus / COVID-19? documented as of this encounter Last Filed Vital Signs Not on filedocumented in this encounter Patient Instructions * Patient Instructions* Mayte Estrada LPN - 07/05/2021 1:45 PM EDT The patient is instructed to call the office with any question/concerns or if sy mptoms worsen. documented in this encounter Progress Notes * Marcial Oreilly MD - 07/05/2021 1:45 PM EDT Chief complaint: Chief Complaint Patient presents with Follow-up Right hip pain HPI: Patient returns for follow-up of her right hip. Unfortunately the effects of the injection have completely worn off. She is having increasing pain and d ysfunction. We discussed management at length, including consideration of a hip replacement. The patient is in the process of being scheduled for hysterectomy with her curriculum assistant. As for her hip, she is noting increasing pain and dysfu nction. In the groin. It is consistent with her diagnosis of arthritis. Its a ssociated with decreased range of motion. That is affecting her quality of life . The patient's past medical history, surgical history, medications, social histor y, allergies, family history and review of systems are reviewed with the patient . Pertinent positives are noted in the HPI. Updates and changes are noted in th e EPIC system. PHYSICAL EXAM: Estimated body mass index is 29.13 kg/m as calculated from the following: Height as of 05/11/21: 1.778 m (5' 10"). Weight as of 07/04/21: 92.1 kg (203 lb). Patient appears healthy and in no acute distress. Alert and oriented with normal mood and affect. They walk with a limp. Right hip exam: The patient has decreased range of motion of the right hip assoc iated with groin and peritrochanteric tenderness. Positive [place]. Positi ve impingement. Imaging: X-rays are reviewed completed in the office today. These are significan tly unchanged. They continue to demonstrate moderate degenerative changes of th e bilateral hips. MRI of the right hip is reviewed completed in May of this year. This demonstra ting a more arthritic pattern, with high-grade articular cartilage thinning and periarticular subchondral cyst. Impression: 56-year-old female with degenerative changes bilateral hips, more sy mptomatic on the right Assessment/plan: We spoke at length about the patient's stable chronic illness, hip arthritis, which are responsible for many of their symptoms. The patient pr esents today without an acute exacerbation. We spoke at length about the natura l history of their diagnosis of arthritis, and implications with their chronic m edical comorbidities. We discussed treatment algorithms starting at low risk, a nd continuing to high risk. We discussed the use of dhoa-kda-vkbkzch medication s including Tylenol and NSAIDs (both oral or topical). We discussed the use pre scription medications including prescription NSAIDS, and her narcotics. We discu ssed the importance of nonmedical management with low impact exercise, muscle st rengthening, strengthening, weight loss, and optimization of their medical comor bidities. We discussed the indications, risks and benefits, and effect of tempo rizing measures with intra-articular prescription injections with either cortiso ne, viscosupplementation, or stem cells. We discussed the use of low risk surgi elsa intervention, arthroscopy, and how it is typically not recommended further u nderlying condition. The risk of surgical complications do not outweigh any min imal benefit. And then we had an extensive conversation about arthroplasty, whe ther it was indicated at this point, and at which point it becomes serious conve rsation. We discussed risks and benefit of surgery. We discussed recovery. We discussed long-term longevity. We discussed surgical approaches, implant beari ngs, etc. We talked at length about a hip replacement. This is the course of treatment th at I would recommend in this patient given her exhaustion of conservative care. We talked about timing. She is in the process of being scheduled for hysterect elijah from her curriculum assistant. Currently it looks like this will not be until first quarter 2021. That is the case, certainly we can get her hip replacement done in the meantime. Alternatively, we would do it after she recovers from her gyne cological surgery. The only complicating factor, would be patient positioning f or her gynecological procedure, maintaining hip restrictions, and whether this w ould complicate her gynecological procedure. She is here to think about options with the family, discuss this with her gyneco logist. And let me know how she would like to proceed. This document was dictated using [employer] software. A reasonable attempt at proof reading has been made to minimize errors. Please ca ll our office if you have any questions. documented in this encounter Plan of Treatment Care Team Description Date Type Specialty 07/19/2021 Procedure visit [facility] Health Maintenance Due Date Last Done Comments [...] filedocumented in this encounter Visit Diagnoses Diagnosis Arthritis of right hip - Primary documented in this encounter
--- OUTSIDE RECORDS SUMMARY | 2021-09-22 19:37 | CCD | Summary of Care ---
Author Author [facility] Address Unknown Phone Unavailable Care Team Providers Care Bait Digger Name Role Phone Katie Finley DO PCP Reason for Visit * Reason Comments Gynecologic Exam Encounter Details Care Team Description Date Type Department Elsie Jauregui MD [address] [place] [address] Well woman exam with routine gynecologic al exam (Primary Dx); Uterine leiomyoma, unspecified location; Urinary frequency 07/04/2021 Office Visit [facility] [address] [place] [address] Allergies No Known Active Allergiesdocumented as of this encounter (statuses as of 07/04/2021) Medications End Date Status Medication Sig Dispensed [...] as of this encounter (statuses as of 07/04/2021) Active Problems Problem Noted Date Uterine leiomyoma [...] as of this encounter (statuses as of 07/04/2021) Immunizations Name Administration Dates Next Due documented [...] of this encounter Last Filed Vital Signs Reading Time Taken Comments Vital Sign 129/81 07/04/2021 9:46 AM EDT Blood Pressure 84 07/04/2021 9:46 AM EDT Pulse - - Temperature - - Respiratory Rate - - Oxygen Saturation - - Inhaled Oxygen Concentration 92.1 kg (203 lb) 07/04/2021 9:46 AM EDT Weight - - Height 29.13 05/11/2021 9:53 AM EDT Body Mass Index documented in this encounter Progress Notes * Elsie Jauregui MD - 07/04/2021 9:45 AM EDT CC/HPI: Pt here for an annual exam. The patient has concerns today about feeling of pel christine fullness/pressure & she has to urinate every hour, wondering if this could be related to her fibroids. Mirena IUD in place since 2016, pt reports last episode of vaginal spotting was January 2021. She does endorse night-time hot flushes. Also notices a little more difficulty achieving orgasm. Sexually active:yes The current method of family planning is Mirena IUD She denies any recent changes in her health or history or her family health or h istory with the exception of: - right hip pain, s/p MRI-guided joint injection 03/2021 and follow-up MRI 05/2021 showing interval progression of moderate right hip osteoarthrosis as well as "no significant interval change in few hypointense signal uterine fibroids measuring up to 5.9cm in length". --> this is consistent with multifibroid uterus seen on sono in our office 2018 with largest fibroid >6cm. Mirena IUD inserted for tx of heavy bleeding from fibroids in 2017. OBGYN Update: No LMP recorded. OB History Para Term AB Living 4 3 3 1 SAB TAB Ectopic Multiple Live Births 1 # Outcome Date GA Lbr Abdiaziz/2nd Weight Sex Delivery Anes PTL Lv 4 SAB 3 Term 2 Term 1 Term ROS: She denies vaginal itching, burning, discharge or foul odor; no urinary urgency, burning or frequency. Denies depression, irregular bleeding, dyspareunia, bess ges in bowel or bladder habits, leaking urine, pelvic pain or abuse. Remainder of complete ROS: negative History: [facility] screening history: - last pap 05/2017 NILM/NEG hrHPV - last mammo 10/2019 in our records, BIRADS-2 -- pt states she just had one done earlier this month The patient's past medical/surgical/social/family histories, medications and all ergies were reviewed and updated in [employer] at this visit. 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 Breasts: Deferred, as mammo just done 2 weeks ago & pt with breast implants Abdomen: Soft, non-tender, no masses, no hernia. Derm: Warm to touch, without abnormalities. Soft and supple. Psych: Alert and oriented x3 and pleasant. Pelvic: Hair distribution as adult female. Introitus: [place] without lesions Vulva: No ulcers, pustules or other lesions. Vagina: Normal pigmentation and rugation, discharge is normal and physiologic a nd copious. Cervix: Firm, no CMT elicited, no lesions or discharge from os. IUD strings vi sualized at cervical os. Uterus: bulky, mobile, with palpable fibroid anteriorly and posteriorly, filli ng much of the cul de sac but still with good mobility Adnexa: No masses, fullness or tenderness. A beauty director was present for the entire breast/pelvic portion of the exam. Initia ls: YG. A: 1. Well woman exam with routine gynecological exam 2. Uterine leiomyoma, unspecified location 3. Urinary frequency P: -per ASCCP guidelines, next pap due 2021 -mammogram next due 2021 -based on pt's exam today, urinary frequency likely explained by bulky fibroids. Discussed that hysterectomy would relieve the pressure on her bladder, she is i nterested in moving forward with this. We briefly reviewed anticipated laparosco pic approach, possible need to convert to laparotomy, brief overivew of surgical risks & need for full 6 weeks off work. Booking sheet filled out today, pt aware I have a backlog & it may be later 2020 or early 2021 before she is scheduled - pelvic sono within next month to further delineate size of uterus/fibroids for surgical planning -Pt signed up for [place], aware results will be sent electronically -RTO 1 year for [facility] exam or sooner with problems. 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 Pt had recent MRI for her right hip and it a showed she had a f ibriod she c/o feeling pelvic pressure and feels she has to urinate every hour. documented in this encounter Plan of Treatment Care Team Description Date Type Specialty Marcial Orielly MD [address] [place] [address] 07/05/2021 Office Visit Orthopedic Surgery 07/19/2021 Procedure visit Obstetrics and Gyne cology Order Schedule Name Type Priority Associated Diag noses Expected: 07/18/2021, Expires: [employer] ULTRASOUND ORDER Imaging Routine Uterin e leiomyoma, (IN OFFICE) unspecified location Urinary frequency Health Maintenance Due Date Last Done Comments MMR Vaccines (1 of 1 - 1967 Standard series) Varicella Vaccines (1 of 1967 2 - 2-dose childhood series) HIV Screening 1979 Colon Cancer Screening 10 2016 yrs DTaP,Tdap,and Td Vaccines 09/20/2016 08/23/2016 (2 - Td or Tdap) Influenza Vaccine 08/05/2021 10/11/2019, 08/19/2018, 08/23/2017, Additional history exists Breast Cancer Screening 2 10/16/2021 10/16/2019, years 08/14/2018, 08/08/2017 Cervical Cancer Screening 05/30/2022 05/30/2017 5 years Pneumococcal Vaccine: 65+ 2031 Years (1 of [...] filedocumented in this encounter Visit Diagnoses Diagnosis Well woman exam with routine gynecologi elsa exam - Primary Routine gynecological examination Uterine leiomyoma, unspecified location Urinary frequency documented in this encounter
--- OUTSIDE RECORDS SUMMARY | 2021-09-22 20:33 | CCD ---
Author Author [facility] Organization [facility] Address Unknown Phone Unavailable Care Team Providers Care Flap Curer Name Role Phone Dutch KERR Unavailable Unavailable [...] Unavailable Unavailable Sofia, Donell PA Unavailable Unavailable Soifa, Donell PA Unavailable Unavailable Sofia, Donell PA [...] Donell PA Unavailable Unavailable MEDENT_104, NA Unavailable [phone] Rabbia, C Yanely Unavailable Unavailable Rabbia, C [...] A JASWINDER MD Unavailable Unavailable WILLAMS, A JAWSINDER MD Unavailable Unavailable WILLAMS, A JASWINDER MD [...] SAN MD Unavailable Unavailable ETHEL, B KEVIN SPECIAL EDUCATION PRESCHOOL TEACHER Unavailable Unavailable ETHEL, B KEVIN SPECIAL EDUCATION PRESCHOOL TEACHER Unavailable Unavailable ETHEL, B KEVIN SPECIAL EDUCATION PRESCHOOL TEACHER Unavailable Unavailable ETHEL, B KEVIN SPECIAL EDUCATION PRESCHOOL TEACHER Unavailable Unavailable ETHEL, B KEVIN SPECIAL EDUCATION PRESCHOOL TEACHER Unavailable Unavailable ETHEL, B KEVIN SPECIAL EDUCATION PRESCHOOL TEACHER Unavailable Unavailable ETHEL, B KEVIN SPECIAL EDUCATION PRESCHOOL TEACHER Unavailable Unavailable ETHEL, B KEVIN SPECIAL EDUCATION PRESCHOOL TEACHER Unavailable Unavailable ETHEL, B KEVIN SPECIAL EDUCATION PRESCHOOL TEACHER Unavailable Unavailable ETHEL, B KEVIN SPECIAL EDUCATION PRESCHOOL TEACHER Unavailable Unavailable ETHEL, B KEVIN SPECIAL EDUCATION PRESCHOOL TEACHER Unavailable Unavailable ETHEL, B KEVIN SPECIAL EDUCATION PRESCHOOL TEACHER Unavailable Unavailable ETHEL, B KEVIN SPECIAL EDUCATION PRESCHOOL TEACHER Unavailable Unavailable ETHEL, B KEVIN SPECIAL EDUCATION PRESCHOOL TEACHER Unavailable Unavailable ETHEL, B KEVIN SPECIAL EDUCATION PRESCHOOL TEACHER Unavailable Unavailable ETHEL, B KEVIN SPECIAL EDUCATION PRESCHOOL TEACHER Unavailable Unavailable ETHEL, B KEVIN SPECIAL EDUCATION PRESCHOOL TEACHER Unavailable Unavailable ETHEL, B KEVIN SPECIAL EDUCATION PRESCHOOL TEACHER Unavailable Unavailable ETHEL, B KEVIN SPECIAL EDUCATION PRESCHOOL TEACHER Unavailable Unavailable ETHEL, B KEVIN SPECIAL EDUCATION PRESCHOOL TEACHER Unavailable Unavailable ETHEL, B KEVIN SPECIAL EDUCATION PRESCHOOL TEACHER Unavailable Unavailable ETHEL, B KEVIN SPECIAL EDUCATION PRESCHOOL TEACHER Unavailable Unavailable ETHEL, B KEVIN SPECIAL EDUCATION PRESCHOOL TEACHER Unavailable Unavailable ETHEL, B KEVIN SPECIAL EDUCATION PRESCHOOL TEACHER Unavailable Unavailable ETHEL, B KEVIN SPECIAL EDUCATION PRESCHOOL TEACHER Unavailable Unavailable ETHEL, B KEVIN SPECIAL EDUCATION PRESCHOOL TEACHER Unavailable Unavailable ETHEL, B KEVIN SPECIAL EDUCATION PRESCHOOL TEACHER Unavailable Unavailable ETHEL, B KEVIN SPECIAL EDUCATION PRESCHOOL TEACHER Unavailable Unavailable ETHEL, B KEVIN SPECIAL EDUCATION PRESCHOOL TEACHER Unavailable Unavailable ETHEL, B KEVIN SPECIAL EDUCATION PRESCHOOL TEACHER Unavailable Unavailable ETHEL, B KEVIN SPECIAL EDUCATION PRESCHOOL TEACHER Unavailable Unavailable ETHEL, B KEVIN SPECIAL EDUCATION PRESCHOOL TEACHER Unavailable Unavailable ETHEL, B KEVIN SPECIAL EDUCATION PRESCHOOL TEACHER Unavailable Unavailable ETHEL, B KEVIN SPECIAL EDUCATION PRESCHOOL TEACHER Unavailable Unavailable ETHEL, B KEVIN SPECIAL EDUCATION PRESCHOOL TEACHER Unavailable Unavailable ETHEL, B KEVIN SPECIAL EDUCATION PRESCHOOL TEACHER Unavailable Unavailable ETHEL, B KEVIN SPECIAL EDUCATION PRESCHOOL TEACHER Unavailable Unavailable ETHEL, B KEVIN SPECIAL EDUCATION PRESCHOOL TEACHER Unavailable Unavailable ETHEL, B KEVIN SPECIAL EDUCATION PRESCHOOL TEACHER Unavailable Unavailable ETHEL, B KEVIN SPECIAL EDUCATION PRESCHOOL TEACHER Unavailable Unavailable ETHEL, B KEVIN SPECIAL EDUCATION PRESCHOOL TEACHER Unavailable Unavailable ETHEL, B KEVIN SPECIAL EDUCATION PRESCHOOL TEACHER Unavailable Unavailable ETHEL, B KEVIN SPECIAL EDUCATION PRESCHOOL TEACHER Unavailable Unavailable ETHEL, B KEVIN SPECIAL EDUCATION PRESCHOOL TEACHER Unavailable Unavailable ETHEL, B KEVIN SPECIAL EDUCATION PRESCHOOL TEACHER Unavailable Unavailable ETHEL, B KEVIN SPECIAL EDUCATION PRESCHOOL TEACHER Unavailable Unavailable ETHEL, B KEVIN SPECIAL EDUCATION PRESCHOOL TEACHER Unavailable Unavailable ETHEL, B KEVIN SPECIAL EDUCATION PRESCHOOL TEACHER Unavailable Unavailable ETHEL, B KEVIN SPECIAL EDUCATION PRESCHOOL TEACHER Unavailable Unavailable ETHEL, B KEVIN SPECIAL EDUCATION PRESCHOOL TEACHER Unavailable Unavailable ETHEL, B KEVIN SPECIAL EDUCATION PRESCHOOL TEACHER Unavailable Unavailable ETHEL, B KEVIN SPECIAL EDUCATION PRESCHOOL TEACHER Unavailable Unavailable ETHEL, B KEVIN SPECIAL EDUCATION PRESCHOOL TEACHER Unavailable Unavailable ETHEL, B KEVIN SPECIAL EDUCATION PRESCHOOL TEACHER Unavailable Unavailable ETHEL, B KEVIN SPECIAL EDUCATION PRESCHOOL TEACHER Unavailable Unavailable ETHEL, B KEVIN SPECIAL EDUCATION PRESCHOOL TEACHER Unavailable Unavailable ETHEL, B KEVIN SPECIAL EDUCATION PRESCHOOL TEACHER Unavailable Unavailable ETHEL, B KEVIN SPECIAL EDUCATION PRESCHOOL TEACHER Unavailable Unavailable ETHEL, B KEVIN SPECIAL EDUCATION PRESCHOOL TEACHER Unavailable Unavailable ETHEL, B KEVIN SPECIAL EDUCATION PRESCHOOL TEACHER Unavailable Unavailable ETHEL, B KEVIN SPECIAL EDUCATION PRESCHOOL TEACHER Unavailable Unavailable ETHEL, B KEVIN SPECIAL EDUCATION PRESCHOOL TEACHER Unavailable Unavailable CARLITA, R KISHOR Unavailable Unavailable [...] Renuka Zimmerman MD Unavailable Unavailable Hannah, Renuka Zimmemran MD Unavailable Unavailable Hannah, Renuka Zimmerman MD Unavailable Unavailable Hannah, Renuka Zimmerman MD Unavailable Unavailable Hannah, Renuka Zimmerman MD Unavailable Unavailable Hannah, Renuka Zimmerman MD Unavailable Unavailable Hannah, Renuka Zimmemran MD Unavailable Unavailable Hannah, Renuka Zimmerman MD Unavailable Unavailable Hannah, Renuka Zimmerman MD Unavailable Unavailable Hannah, Renuka Zimmerman MD Unavailable Unavailable Hananh, Renuka Zimmerman MD Unavailable Unavailable Hannah, Renuka [...] is protected by Article 27-F of the [facility] Public Health law. If you continue you may have access to information: Regarding HIV / AIDS; Provided by facilities licensed or operated by the [facility] Office of Mental Health; or Provided by the [facility] Office for People With Developmental Disabilities. If such information is present, then the following [facility] mandated warning applies: This information has been [...] law may result in a fine or penitentiary sentence or both. A general authorization for the release of medical or other information is NOT sufficient authorization for further disc losure. Family History Family Member Name Family Member Gender Family Member Status Date o f Status Description Data Source(s) Unknown Unknown Problem [facility] ([facility]) Unknown Unknown Problem MED[facility] ([facility]) Encounters Encounter Providers Location Date Indications Data Source(s ) Outpatient Attender: Elsie Hannah MD 10/12/2021 12:00:00 AM [facility] Outpatient Attender: Elsie Hannah MD 09/12/2021 12:00:00 AM [facility] Outpatient Attender: Elsie Hannah MD [id number] 09/09 12:00:00 AM EDT - 09/09/2021 03:48:17 PM T [facility] ( in Healthcare facility) Attender: Elsie Russo 09/01/2021 05:30:00 AM EDT - 09/01/2021 06:50:00 PM EDT [facility] Outpatient Attender: Elsie Hannah MDAdmitter: Elsie pettit MD 09/01/2021 05:30:00 AM EDT - 09/01/2021 06:50:00 PM EDT UTERINE FIBROIDS D21.9 [facility] UTERINE FIBROIDS D21.9 Patient discharged. Outpatient Attender: Elsie Hannah MD 08/30/2021 02:01:57 PM EDT [facility] Outpatient Attender: NA MEDNATIVIDAD_104 CMP Internal Med at [place] [facility] 08/29/2021 10:00:00 AM EDT [facility] ([facility]) Outpatient Attender: Elsie Hannah MD 08/25/2021 09:07:58 PM EDT [facility] Outpatient Attender: Elsie Hannah MD 08/25/2021 07: 53:00 PM EDT TYPE AND SCREEN [facility] TYPE AND SCREEN Outpatient Attender: Elsie Hannah MD [id number] 08/25 12:00:00 AM EDT - 08/25/2021 02:46:52 PM EDT [facility] Outpatient Attender: Yanely ChaseReferrer: Elsie Hannah MD 08/18/2021 12:00:00 AM EDT [facility] pretest Outpatient Attender: NEMESIO KERR 07/19/20 12:00:00 AM EDT - 07/19/2021 03:08:54 PM T [facility] Outpatient Attender: JASWINDER WILLAMS MD [id number] 07/05/2021 12:00:0 0 [facility] Referrer: JASWINDER WILLAMS MD 07/05/2021 12 :00:00 AM EDT Unilateral primary osteoarthritis, right hip [facility] Unilateral primary osteoarthritis, right hip Outpatient Attender: Elsie Hannah MD [id number] 07/04 12:00:00 AM EDT - 07/04/2021 10:40:08 AM T [facility] Outpatient Attender: Harley Maeerrer: Harley Zuñiga [id number] 06/02/2021 12:00:00 AM T [facility] Outpatient Referrer: Harley GARCIA 05/26/2021 12: 00:00 AM EDT Unilateral primary osteoarthritis, right hip [facility] Unilateral primary osteoarthritis, right hip OFFICE OUTPATIENT VISIT 15 MINUTES Attender: KEVIN DAVENPORT NP Physical Therapy 05/12/2021 09:45:00 AM EDT MEDENT ([facility]) Outpatient Attender: Harley GARCIA [id number] 05/11/2021 12:00:00 AM [facility] Outpatient Attender: PATRIA Camarena er: PATRIA WALKERReferrer: Harley GARCIA 03/31/2021 12:00:00 AM EDT - 03/31/2021 01:03:00 PM EDT Unilateral primary osteoarthritis, right hip [facility] Unilateral primary osteoarthritis, right hip Patient discharged. Outpatient Attender: KISHOR ZAZUETAReferrer: Harley GARCIA [id number] 03/29/2021 12:00:00 AM EDT - 03/30/2021 12:00:00 [facility] Out[facility] Attender: JI TABARES MDReferrer: Harley GARCIA 03/10/2021 12:00:[facility] 03/08/2021 12:00:00 AM [facility] Attender: Harley GARCIA [id number] 02/21/2021 12: 00:00 AM EDT Unilateral primary osteoarthritis, right [facility] Unilateral primary osteoarthritis, right hip Outpatient Referrer: Harley GARCIA 02/21/2021 12: 00:00 AM EDT Pain in right [facility] Pain in right hip Outpatient Attender: WANDA RUVALCABA DO [facility] 01/26/2021 03:40:00 PM EDT MEDENT ([facility] OFFICE OUTPATIENT VISIT 15 MINUTES Attender: KEVIN DAVENPORT NP Physical Therapy 11/16/2020 02:30:00 PM EST MEDENT ([facility]) Outpatient Attender: KEVIN DAVENPORT NP Physical Therapy 03:45:00 PM EDT MED[facility] ([facility]) Outpatient Attender: Donell GARCIA [facility] 07/29/2020 02:40:00 PM EDT MEDENT ([facility]) Immunizations Vaccine Date Status Description Data Source(s) COVID-19 VACCINE Pfizer 01/16/2021 12:00:00 AM EST completed [facility] Vaccine Series Complete: YESThis Data wa s Submitted to [facility] [employer] [facility]. COVID-19 VACCINE Pfizer 12/26/2020 12:00:00 AM EST completed [facility] Vaccine Series Complete: NOThis Data was Submitted to [facility] [employer] [facility]. Medications Medication Brand Name Start Date Product Form Dose Route Admi nistrative Instructions Pharmacy Instructions Status Indications Reaction Description Data Source(s) lidocaine (XYLOCAINE) 1 % injection [id number] 03/31/2021 01:02:08 PM EDT completed Code/Trauma Medicati on, Starting on Luciana 03/31/21 at 1302 [facility] Medication administered onsite methylPREDNISolone acetate (DEPO-MEDROL) injection 80 mg [id number] 03/31/2021 01:00:00 PM EDT 80 mg Intra-articular completed 80 mg, Intra- articular, Once, On Luciana 03/31/21 at 1300, For 1 dose [facility] Medication administered onsite Levothyroxine Sodium 0.075 MG Oral Table t [Synthroid] Synthroid 75 MCG Oral Tablet Synthroid 75 MCG Oral Tablet 03/21/2021 12:00:00 AM EDT active TAKE 1 TABLET BY MOUTH ONCE DAILY WITH Pia JHAVERI. MDD 1 [facility] azelaic acid 150 MG/ML Topical Foam [Finacea] Finacea 15 % External Foam Finacea 15 % External Foam 01/12/2021 12:00:00 AM EST active APPLY TO FACE ONCE DAILY FOR ROSACEA [facility] Levothyroxine Sodium 0.075 MG Oral Tablet [Synthroid] Synthr oid 08/19/2020 12:00:00 AM EDT ORAL active M EDENT ([facility]) Insurance Providers Payer name Policy type / Coverage type Policy ID Covered democrat ID Covered democrat's relationship to sinclair Policy [place] Plan Information BS [place] [employer] Part B [id number] Self R [id number] BS [place] Med[employer]ap Part B [id number] Self R [id number] EXCELLUS C [id number] Spouse [id number] BS [place] Med[employer]ap Part B [id number] Self BS [place] Med[employer] Part B [id number] Self R [id number] BS Fed Plan Commercial [id number] Fed Plan Commercial [id number] GREGG CLAIMS ADMIN NCA WC W [id number] Empl [id number] GREGG CLAIMS ADMIN NCA WC W [id number] Empl [id number] EXCELLUS BLUE CROSS BLUE SHIELD HEA [id number] SP [id number] [place] CLAIM ADMIN WORK COMP [id number] SP [id number] [facility] Federal Plan Commercial [id number] Family Dependent [id number] EXCELLUS [facility] FEDERAL [id number] [facility] Federal Plan Commercial [id number] Family Dependent EXCELLUS [facility] FEDERAL [id number] [facility] [place] FEDERAL [id number] [facility] FEDERAL EMPLOYEE PROGRAM [id number] Problems, Conditions, and Diagnoses Code Display Name Description Problem Type Effective Dates Data Source(s) pretest pretest Diagnosis 08/18/2021 12:00:00 AM [facility] M16.11 Unilateral primary osteoarthritis, right hip Unilateral primary osteoarthritis, right hip Diagnosis 07/05/2021 01:40:34 PM [facility] [id number] Allergic rhinitis Allergic rhinitis Problem 07/29/2020 12:00:00 AM EDT MEDENT ([facility]) [id number] Hypothyroidism Hypothyroidism Problem 07/29/2020 12:00: 00 AM EDT MEDENT ([facility]) Surgeries/Procedures Procedure Description Date Indications Data Source(s) OFFICE OUTPATIENT VISIT 5 MINUTES 08/29/2021 12:00:00 AM EDT MED[facility] ([facility]) OFFICE OUTPATIENT VISIT 15 MINUTES 05/12/2021 12:00:00 AM EDT MED[facility] ([facility] ) ARTHROCENTESIS ASPIR&/INJECTION MAJOR JT/BURSA <td>IR IMAGE GUIDED NEEDLE DRAIN PROCEDURE</td><td>Routine</td><td>03/31/2021 1:06 PM EDT</td><td> Arthritis of right hip</td><td> </td> 03/31/2021 01:06:34 PM EDT Arthritis of right hip [facility] Arthritis of right hip OFFICE OUTPATIENT VISIT 15 MINUTES 11/16/2020 12:00:00 AM EST RA ([facility]) Results ID Date Data Source [id number] 09/09/2021 09:41:48 PM EDT [facility] Name Value Range Interpretation Code Description Data Corrie rce(s) Supporting Document(s) Progress Note [facility] WPOCKj6cVvRGNfAr00/OJHsaJCCft3VuNPemZVx7SBptLWLiM7UiEMN3eC9zURO3KLhAHsByKlDhBBT9 lbm [file] KyOhQst8IeN0RDR4BSSaKVW7RUFmXcVwBC4VDg1RNsW3XHW8kCDrQo3LCxA4JWvUCaHwZP3JFYj= ID Date Data Source [id number] 09/02/2021 04:58:32 PM EDT [facility] [place] [address]Tel# SURGICAL PATHOLOGY REPORTPatient Name:SARAH MCGEE:1965Received:09/01/2021ccession #:[id number](s) [...] Out By Patria Chanel M.D. jzwPathology Associates [facility], [place], [place] [address]Technical component performed at [facility], Histopathology, [address] [place] [address], [id number].Reported at [facility], [address] [place] [address], [facility].This report may include immunohistochemical or in-situ hybridizationresults. Testing was developed and the performance characteristicsdetermined by [facility], as required byCLIA '88. The FDA has determined that approval for specific use is notnecessary for clinical use. The quality of Hematoxylin and Eosin stainsand as applicable, for all immunohistochemical and/or special stains,including positive and negative controls, were reviewed and consideredappropriate.ICD codes: D25.9 N84.1CPT4 codes: A: 27217Q Name Value Range Interpretation Code Description Data Corrie rce(s) Supporting Document(s) ID Date Data Source [id number] 09/09/2021 08:17:00 [place] [address] PATIENT NAME: SARAH MCGEEDATE OF : 1965REPORT: OPERATIONPATIENT NUMBER: [id number] STATUS: SDMEDICAL RECORD NUMBER: [id number] OF ADMISSION: 09/01/2021ATE OF DISCHARGE:ROOM: DATE OF [...] mb Dictated: 09/01/2021 12:01DT: 09/01/2021 19:08Job #: [id number]: NOTE: [facility] computer generated reports are not confirmed orauthenticated unless they are signed by the providerElectronically Authenticated and Edited by:Annie Rebolledo MD on 09/07/2021 04:26 PM EDTElectronically Authenticated and Edited by:ELSIE HANNAH MD on 09/09/2021 08:17 PM EDT Name Value Range Interpretation Code Description Data Corrie rce(s) Supporting Document(s) ID Date Data Source [id number] 09/01/2021 07:57:41 AM EDT [facility] Name Value Range Interpretation Code Description Data Corrie rce(s) Supporting Document(s) SODIUM 142 mmol/L (136-145) [facility] POTASSIUM 5.1 mmol/L (3.6-5.2) [facility] CHLORIDE 109 mmol/L (100-108) H [facility] CO2 30 mmol/L (22-31) [facility] ANION GAP 3 mmol/L (7-16) L [facility] UREA NITROGEN 14 mg/dL (7-24) [facility] CREATININE 0.82 mg/dL (0.60-1.00) [facility] BUN/CREAT RATIO 17.1 RATIO (10.0-20.0) [facility] GLUCOSE 89 mg/dL (70-99) [facility] CALCIUM 9.1 mg/dL (8.4-10.2) [facility] GFR >60 ml/min/1.73m2 (>59) [facility] GFR ( AMER) >60 ml/min/1.73m2 (>59) [facility] GFR INTERPRETATION [facility] --NORMAL KIDNEY FUNCTION OR MILD DISEASE - GFR >OR= 60CHRONIC KIDNEY DISEASE - GFR 15 - 59RENAL FAILURE - GFR <15 Est. GFR calculation based on the MDRDstudy equation, which assumes a steadystate for creatinine. Est. GFR should notbe used for medication dosing. ID Date Data Source [id number] 09/01/2021 06:52:05 AM EDT [facility] Name Value Range Interpretation Code Description Data Corrie rce(s) Supporting Document(s) HEMOGLOBIN A1C @ 5.1 % (4.0-6.0) [facility] [place] Performed using Siemens [place] immunoassa y.Care must be taken when interpreting EkF9dvcocwgm in patients with a hemoglobin variantor decreased erythrocyte lifespan. Values 5.7 - 6.4% suggest prediabetes.Values >=6.5% are diagnostic for diabetes.REFERENCE: DIABETES CARE 2018: 41(S13-S27).PERFORMED AT [address] [place] [address] EST AVERAGE GLUCOSE 100 mg/dL [facility] ID Date Data Source [id number] 09/01/2021 09:29:50 AM EDT [facility] Name Value Range Interpretation Code Description Data Corrie rce(s) Supporting Document(s) POC GLUCOSE 77 mg/dL (70-99) [facility] NOTIFIED NURSEPERFORMED BY DEONTE CLINICAL S TAFF ID Date Data Source [id number] 08/31/2021 10:01:18 AM EDT [facility] Name Value Range Interpretation Code Description Data Corrie rce(s) Supporting Document(s) Progress Note [facility] LIFHKq8wXoJCXvMj76/EFHfbOXHas8FeGIydNSk4EFfcPBMbO7KlTZO8mV1kQRR3DXwMDxGiRoPaSDC3 lbm [file] wih/[place]+WhhGNnGoa+tsp03UzolDhx5lR4rT8BmAtTHDiNEJTBliMGh/rZhUwgspcEq7KTKMv9MckfaC okNyYJN+Aoo5Q18Yb5aaWbIO8OZTt5d+JWqNuZFv/IUe6wKFFG5ta0bRRhUz2L8AH9Et8Kon6opD2WPs GLChenVtAr/GchtBUl61FHdVmlPG2GpVkawPE/tFlv jBQBEB69tJIghRmi0MqZdu1aCIPunKc9SwCIOeyV9rZRMH4OF4aBZOta25guMqEPkBW8nHmixOt9gOq2 RUSEFz0NmKVOMR5gzf8uFlhgFj1/GDW+eXl2+d+gS2lxWjHE7/m92GbUriTlAk1OA5zfje1tkBlFbg6K wviBzSoDXSnC0I8FuV/ZGzi7Og9K2IQlvaeTHtMccM EGFBDwqLTkSn0urZtzWPSpTHlGUtFSZPEQsdYdMh+1TwVRYHaAOxYTNTUyNqTxtmQvoiZhbzFUm1FeiU KmsT+00Gs3E21vFc7M7SC8DRYO9vWEXSMZ5E+j+mfmDLYw+oLRZIUqXBkwV/oqyLqA9WvlZxGOnwOQuG fbLG+4qOQNktrUM/IU43IK2aOu8T8txLQ2HZHvgOLE VZI3Oy4RgqDPU834MH/DaGEkIr8X0VPKzDGFV+vFarVtVPEWm4a0Et91NeN8yriCuh7HYU8N4p+Lkl05 OT7vG9HEquRjcO4179wDOnNBny6V3o3aAag5SWNCKhloXpjprfBPU7H3c9MCscJNbXJBV3pZ2Y61vsam 9zrSwzgrv7RQEC66fWBpgSUA+1uW0lsB9PElfrA [file] Mh5Wl4MmspB1jiHuFOvkPlh6Zg3TLDAOB4CVGn== ID Date Data Source [id number] 08/29/2021 07:38:00 PM EDT [facility] Name Value Range Interpretation Code Description Data Corrie rce(s) Supporting Document(s) SARS coronavirus 2 RNA [Presence] in Res piratory specimen by MATTY with probe detection NOT DETECTED [facility] This lab was reported by [facility]. ID Date Data Source [id number] 08/30/2021 02:01:56 PM EDT [facility] Name Value Range Interpretation Code Description Data Corrie rce(s) Supporting Document(s) SPECIMEN DESCRIPTION [facility] COVID 19 RESULT (NDET) [facility] NEGATIVE COVID-19 RESULTS DONOT PRECLUDE COVID-2019 INFECTION ANDSHOULD NOT BE USED THE SOLE BASISFOR PATIENT MANAGEMENT DECISIONS. COMMENT [facility] THE [place] FDA HAS MADE THIS TEST AVAILABL EUNDER AN EMERGENCY USE AUTHORIZATION(EUA) FOR THE DETECTION AND/OR DIAGNOSISOF THE VIRUS THAT CAUSES COVID-19.THIS ASSAY AMPLIFIES AND DETECTS TARGETDNA USING DICE TABLE PERSON- MEDIATEDAMPLIFICATIONTESTING PERFORMED ON [employer] FIRST TEST [facility] EMPLOYED IN HLTHCARE [facility] SYMPTOMATIC [facility] DATE OF SYMPT ONSET [facility] [place] [facility] CONGREGATE CARE SET [facility] ID Date Data Source [id number] 08/25/2021 09:13:29 PM EDT [facility] [place] SPEC EXP DATE 09/04/2021ATI ENT ABO/Rh A POSITIVEANTIBODY SCREEN NEGATIVETESTING SITE PERFORMED AT [address] [place] [address] Name Value Range Interpretation Code Description Data Corrie rce(s) Supporting Document(s) TYPE AND SCREEN [facility] PATIENT ABO/Rh A POSITIVE ID Date Data Source [id number] 07/08/2021 07:26:01 AM EDT [facility] Name Value Range Interpretation Code Description Data Corrie rce(s) Supporting Document(s) Progress Note [facility] NQYDCm7eDtJVBoJk74/UZPwtWWVjt0AyDDplQXt3RRexVFPzF1QyENL6wW4lBRN8SNaSMwSeTxSwVFSm lbm [file] AgICAgICAgICAgICAgICAgICAgICAgICAgICAgICAg ICAgICAgICAgICAgICAgICAgICAgICAgICAgICAgICAgICAgICAgICAgICAgICAgICAgICAgICAgICAg CB7UHNRyXUApQMNrGGYyUMXzYYBsBYYgYMYkYNYlOHRdVLQhTIOtOORgJHSsBVDuJZRlVRHgKWCnOGJb ICAgICAgICAgICAgICAgICAgICAgICAgICAgICAgIC XcJCOkGDLnCXXlAW4AIOUjCXRtWVHkSMVySIVxHDLsTDZzPHNpTWMyOESjBHUhBUPkEMEmZSEdSGRjNI NsALNrBFCcDSXzILMsGVOcDESqRSYjHOVbLNJfOYKiAUPrULPvQPXuJTNfTQAbKJLgLSFdKX4LNERuTG AgICAgICAgICAgICAgICAgICAgICAgICAgICAgICAg ICAgICAgICAgICAgICAgICAgICAgICAgICAgICAgICAgICAgICAgICAgICAgICAgICAgICAgICAgICAg UGYcVP0YTOYeQRMfHDXdXLNpGUVlECPlJWZzVPLiTPMfTNGaGWScYTQsGGTbCEZjZUZkIFNwKGFhLAVx ICAgICAgICAgICAgICAgICAgICAgICAgICAgICAgIC WdSKRoGLAkTZVtRNPoXC0CCHCtUTTzBLVbNHAdPFMcEVGgTAWqAUNkWRWaWBSgNZKxOSMtXTAtTVTiVR QqCYHaGWXrGOOeEGNmAOJhFBEiRDPvCYRqKPWnXLTfHIPcOXRlZTLfEMLxAZMsNMDnZPHsINCfSP4NMH AgICAgICAgICAgICAgICAgICAgICAgICAgICAgICAg ICAgICAgICAgICAgICAgICAgICAgICAgICAgICAgICAgICAgICAgICAgICAgICAgICAgICAgICAgICAg NSKcHJHmMM9GSYAzPCVlIZYbLRWnBBNfNXKsWSSjXIFpFMJfUERfWBXuWMSjRUDmTXDqXPGhOSEwHXXi ICAgICAgICAgICAgICAgICAgICAgICAgICAgICAgIC CoCBHwIZPaEJAxZVBsPFSmFN1ZTCFiPGZaHJWkCLQwABTwHQCwRKKbROWmQZLpHDThDLBgJUHpIGFaHI AgICAgICAgICAgICAgICAgICAgICAgICAgICAgICAgICAgICAgICAgICAgICAgICAgICAgICAgICAgIA 0FRU76rCAlh6T7JZVvLA9cfxx/Xc6XDBkrmrOszJNo HD5UIaNfLD5xgu6XQaSwYN7pjo2LBYfVScHbB3D0iDUvTUCrNYHQMbLgV49dMRwbFx80IMvpFUIoChXp DDl6Uy4PCgLzS7fbRPXcIjO3GJXsSmM8CPGmSxDsFOziVW2Bt9JtwGGfQMt+Im8KCA0uy9EuSLjqFeOc YH9lgk5YTBxJGqBaL0FqapT5SRQ2IBWxIw5WPQIeBB BofOBdQQEdDCFOTsMsK2YhmI14VWFLZd9+SQegmiNiNtlMUeG2QTFog9PgUWi9RM7RCVKiCEc5gWYfSR TrB2Elx5RkSa36MASpUbvsSf6bWRU6JFMqC2nith2eresmMZGmSWTtNK9cTP4fHVOkEJIwMrJ0IZXNGB 6LDMNhPKKwiVJkRTLqYBXRGS4SFGypGRL7WSQzwbBj fJVqUEjgNG9NZLTfwlYwUpseYJOVGQm+Hc9RAD4ju2PdQAkjSSOlFX9whc4GGAzJAyIlN7X4qCBgP4Y0 HWssQe0HMZJyBPGcKwEfPLIJZOmeAA5NUR1lvgU7SJ0GxTQrOLLtEXQxfZEhSEr9G24aoKNwBQilTV7L ICA+Tawanna+Qv9XMVYnFVNiZNUxZuSxGXRFPlHbE7CzC8 ENr7UrX7BfZW24pFrzitJdSGjtAV8DBR2iYKXdMBUQLB2LfBXvpE5hudVqIpQtBFMHYiFbV54zhUJoIF HzIAD6OYXcYv7RAVWtZ0SbtpCdwVmltkSoGSVnRMAQKP3ADUeeekCrrLMkfTjjOT21xUvbFV2EHz6KEj MuMG2sic0XmFCsOo6OGXGvCM1XFVLhMQGzYPDrFDA4 YIJtIlPmTUwwJOCvSMYkVUQ0RSCbFVTfHE4MAdWkLZLsFgF8OjOaCQNaLGSbue3ZYJRoMFXbZdN2XeAy FJUoEUGsTVvfHZKdTEXiEMM2EEGdWUVxUD2PPlVcRIRkHOT4IrasYDBsUXBfnh4OCNFdSJJgWpN8DBJs EXTaKDGkDPxpPHReBER0JiU1VKBpKVEsZX7IDaAqSQ YfBDM8TOvgHJJwQIIzrz0XKOJrGLCeVezqQPVvIFGoSCUoALcjTBQaGZR2DYS9VVMnZXHuMQ6BQvSqDN MwZLxtSVNlFDLjCNFhzk7HQJIiSHEvRNT3QRMzTVCaOWPzTXdkAOIlSID7PXX0XUYeJDInLZ7IFyLqBB QiBGk5GqCeCPPkIWUylb0SBKHnRRBrKEI4WHRoICUq RMTeTWqkCMWlBSChSmk6RBRxDYQkOC4LOhXoHWBaBnM0SXvlDHRdIKEigy4MSTPgBVQiAJj7XAHaDBBx FXPsPYvjQICuTXJmCMt2IHFdCJOlGM0NMwGpPWUaZzA3VveyBDLiFAQqfv0WAIMwUXDsEyCzYRJlYKFx HMFjEJvlALIuTHXpGnvhMVNdIOLlKL1TBeNrBWAnZq UcXaWmSMCtSIOavl1JLWCbRRVcFHTbOvMrGFKuAWElGMrpRSLfUGZ3OrShIXQbUDQfFO0AZaJmEFAxRc AhYyDdPLRvJXCvkr0XCYToWZIeMfF7LhIlKGSeNBLjYQxoOKNdRJK9WDI1TZPwGNXnYD3BGrKeORJhUz L0OGyxCJTqXPSuaf8DcJHtcOcksk0DLQaJIs5WaLrn CBZgKHyjKm2raIOyYYLdQTFJEs0XmcSbCKFkNXUGVIeuPYVtRHUoNzzuVPV4KzThAJz9SGB6MdU2Eyyn HmQmDQPqCBO6StW5WMElHDS9Wwy6KOPaWRMiGiHoHQLiCVAkCKKqTwZ9JTn+IC9pCAe+Dc0Rq0JkwpO7 khGnNFbjMgb5Fi6RJWKZA4POBx== ID Date Data Source [id number] 07/05/2021 06:59:07 PM EDT [facility] XR HIP- UNILAT, 2-3 VIEWS [id number] RE SULTInterpreted by:JOSTIN BrownVIS AND RIGHT HIP [...] rce(s) Supporting Document(s) ID Date Data Source [id number] 07/04/2021 10:54:23 AM EDT [facility] Name Value Range Interpretation Code Description Data Corrie rce(s) Supporting Document(s) Progress Note [facility] JEDGJy2uJzPEGaLn74/NRMymZYAfh7SmWIrrINf6WHydOEDjF9IcZQP2xO5cFKR7DGsFJbOcFlJnLILd lbm [file] TP4LQKJAbtpCCQTqfavJHSEONFLNxOKmhl2c8gTr6n KyTLVEoyli1vpVw59xV3hyYgyGoq56B5XJSOMdUsSiT5tFAEllm4XKnRqvrgPCSs7Yudz3QUfv2ZlxNc GYXmX077IKvC+Qcvwgma46CMPpBZW71UFualfbfrfSl01/1Oz3LBWAbnQyCTLOTZX/Jdjl8DNt2VEkYJ Xum14SSXcmyriKSk8XChVx5ExrrJ+2EaTuTFjXBfY9 JC84OroSNXFmRubjIt9NNdhow41E3wGDmjCS9DWqrCI+anWQXLG1ayKWdXpZZdyAxumn1aV7nYasnzPc f2kP8WP5ZF7txiA8C0nM44PoqzB+aVxbukS6vlTwX8/dhrZ0/kXvekaGKrmU45o6eLMpv+LjXpm0fG+z Y0Y262ks460t0P86VaYrdVk9KUG1yqMluqlsuucEpp VM+iS06tn2Bb0QU5AJsHEKeUYJoGOXxED6C0eHxN+DNnJvDCLBFG1dMIfCksPXk7vSJjXAxX1R1Dlgp8 YhQzzoo4w/CYmEJlEmCVBHPQzbuviwv5P1gi/ajEJ1EMgNZmHk22F45Eq4vPrba65ESAyJKgFusGEIvT Ti1uEqke94UKdypu3296R3IDoyZulRhuiQcY3dfxt7 IobYc8GNhgObdzhg6tgC+E/ftE+DDgl2tREm182byBjtp2tlvn7bOv8ijet+NKAITBbj6oTrHMR6803v DGx+94/K4v5ioJJe4hKKyPR+QrELzUg9oRQZDiLs2H5ZEEvuvA7eWLwwUcJYSaFnlD3XtwNdWM0vjPty dTgZ/E80EhPvIBv36Q0yU+DWvR4stQrOgM0roMu9S/ LGGxnNz0aMN19cUJBZdZgjryc2wlR7yQL18qpLW6lyl5QYmDbB0aleRZ0iUzOhs6bWLD0erfYdgyc+oG x5TSADo7+Km8VJJvT/VAhvqa9zY5Wnhjv/safWvAgQXVJFTOdb6BuOE3IHE5EYTKHOplSG/Btk8ojjRW R0hjwiCZ9bwD8lF2FS3548S+Latin Professor+tSTpjhmPWQyW3dV [file] AgICAgICAgICAgICAgICAgICAgICAgICAgICAgICAgICAgICAgICAgICAgICAgICAgICAgICAgICAgIC AgICAgICAgICANCiAgICAgICAgICAgICAgICAgICAg ICAgICAgICAgICAgICAgICAgICAgICAgICAgICAgICAgICAgICAgICAgICAgICAgICAgICAgICAgICAg ICAgICAgICAgICAgICAgICAgICANCiAgICAgICAgICAgICAgICAgICAgICAgICAgICAgICAgICAgICAg ICAgICAgICAgICAgICAgICAgICAgICAgICAgICAgIC AgICAgICAgICAgICAgICAgICAgICAgICAgICAgICANCiAgICAgICAgICAgICAgICAgICAgICAgICAgIC AgICAgICAgICAgICAgICAgICAgICAgICAgICAgICAgICAgICAgICAgICAgICAgICAgICAgICAgICAgIC AgICAgICAgICAgICANCiAgICAgICAgICAgICAgICAg ICAgICAgICAgICAgICAgICAgICAgICAgICAgICAgICAgICAgICAgICAgICAgICAgICAgICAgICAgICAg ICAgICAgICAgICAgICAgICAgICAgICANCiAgICAgICAgICAgICAgICAgICAgICAgICAgICAgICAgICAg ICAgICAgICAgICAgICAgICAgICAgICAgICAgICAgIC AgICAgICAgICAgICAgICAgICAgICAgICAgICAgICAgICANCiAgICAgICAgICAgICAgICAgICAgICAgIC AgICAgICAgICAgICAgICAgICAgICAgICAgICAgICAgICAgICAgICAgICAgICAgICAgICAgICAgICAgIC AgICAgICAgICAgICAgICANCiAgICAgICAgICAgICAg ICAgICAgICAgICAgICAgICAgICAgICAgICAgICAgICAgICAgICAgICAgICAgICAgICAgICAgICAgICAg ICAgICAgICAgICAgICAgICAgICAgICAgICANCiAgICAgICAgICAgICAgICAgICAgICAgICAgICAgICAg ICAgICAgICAgICAgICAgICAgICAgICAgICAgICAgIC AgICAgICAgICAgICAgICAgICAgICAgICAgICAgICAgICAgICANCiAgICAgICAgICAgICAgICAgICAgIC AgICAgICAgICAgICAgICAgICAgICAgICAgICAgICAgICAgICAgICAgICAgICAgICAgICAgICAgICAgIC AgICAgICAgICAgICAgICAgICANCjw/rTBxK6cvqTBi wwH0O8baYy9CAw2TVD7pj3IkQFHlRPhlbuOnIybVLuLhMZUeJjcWMhe7UWzpMW5OyXVwD2YhZ4CgCFtj NV9UFQEtPICbcHDmYCBtOECoWvM3SRUlHQxjPP4MiOBbALdyQSAcYGOgTgPyQVDsDHEkCNGeLA0TWCTg P298kyNvJo2TUj8VDsQdUU7bfw5SYvEdTMQhFfgXLd e9URvhTF5RrRGcaQFiKTAjFSQVWlXlW4fuw9JbMeKlZAWHBLzwIT0Jd4DmjMXgCCf+Tr7DHB2tn4RyVI xoFFAiBU0njk7OFXjIBzQjT9TykLstYYOte2rwYYRdDX6gyKGgNNN1VI4xyMInXI7nOnUMgPRvGAxyLN DyQODiIJ7xIA2zYIPgBMD9XiF8PVILOC6ELVKdBVEq sGQxZNWeAGLHOP7EQJzkNYA1DPIwmiKelDPlFJakAN9JEOEkonLhRbGjNBEXXFb+Tf2XQA7vu7HvSStg IGWfPK8nfz3POExVMbEpE7A7iTGsN6E4VVpqIv2BBHVdYMGaCbGjXZEBERwhRL8QFS3zlpQ9PR7JeWDb DYDeSUVhkZByQNm1Q88kfHPpTFnwKX6IFHF+Tawanna+Pg 0QXUAiERNqHOFzVuYhCUHYMxKhV0WoW8UKf6DyK4CrOE21sFhyjbUtOSxkWN9QEB5gYFOzDJJUSL8JmU OkoK0sxhBeBjOcBPJSMmQtL47cdNNyBEJlWXHzRJTtNk4YWNCcJ4PcupNrhWvlavRaLMLcIPDEPM3RCO fhiaDiqQMzmFwpMJ87kBnyIV5QWq5EUiHkCX4imi1N hPAxSw4MXGNkNu3BTOEmTTTrSSZrYHR2TBJeQdGyOSggRDJbVFWaBMR1PZZfGNCsWE2KFtReVWUqWgAn PiAwFCAnUEKlil0XNBUxELHfXxD1INApXASaAFPaPRigLDKpPHMhPXP5LXPbINDkBJ1ZWwNzZAUxJZVh VulzKQPsZEZsjn2QBOUrQJOnLSV4ADPmAMQyVMViAJ uiHINsQRN9NHH3IOIgNOUgQA5KQpZxDOJfJAzcRALuPLKeHXBsyc4PRMBhWTZzPZJ1QNLiQTZwBAYaSL xlSGIrJBQ3JomtHEKfIZCaSW4VOnRnVZDzPRShMQTzUNInAFNmym8ALWGrBCWsBJF5KUUgMKBhYXDiBS mvSZDkGRWzZyPmDKRkJOCdFR1KAoCcPOWbVWC2XAMq ZXOtQANfjf1SHLIsCBSuVVi1HACoFUGuPJVnEIktPFCnIHUxNSvvAEPpSQQyCA4YMbTsSKJhXxM5Kcex WEMcNIAxxv6PGIXeSKFfVfu1RnRvLDXuDUJlUYmaALRlLNUtUIGvBCSrRBLjBJ2LEbUjTNBvQvMfXGBp RMUkSGIdoe0ACBAxSQBxOTG2WYTqNOAlKCDbAVrgEE RmJMV3NdI3JIGrVSSyFP7RVeJgVIHzBiZgOTqyYGOpGPRari1ENXAeMUGfDdI0NHWfTYMcULVkGSbkAZ AjJHS8HBVvDJDhZIVzFX1YHhQvDDzgKKDVDbi8MKzkM9k9QPMlBz2ZZ4Nda3DkQtVnTQZJCSjeGT1zmu MnBKYbMe1KN9nRKmxxFJCmNST5VqK2QDJjQVFkFBKx SRWaI3G3KpEiSXJiAg5fUCR0OIA0Lgn1RlxhQIBqCNO8QQMxNQYdPwT0XtF7NDDiFdRtZI0EJb3FNiD7 ISX4sTBsDh4OFtB8SzYNNcWbUK3GZGq= ID Date Data Source [id number] 06/02/2021 11:11:36 AM EDT [facility] Name Value Range Interpretation Code Description Data Corrie rce(s) Supporting Document(s) Progress Note [facility] MLLLVl2uRiFKFiIu20/EWGwiEKWdi0QyLZknCFw6VKcfSRIqU6CbISG2jR3kPDY2ESuPJhOjQdKkRiK8 lbm [file] AgICAgICAgICAgICAgICAgICAgICAgICAgICAgICAg ICAgICAgICAgICAgICAgICAgICAgICAgICAgICAgICAgICAgICAgICAgICAgICAgICAgICAgICAgICAg ICAgICAgICANCiAgICAgICAgICAgICAgICAgICAgICAgICAgICAgICAgICAgICAgICAgICAgICAgICAg ICAgICAgICAgICAgICAgICAgICAgICAgICAgICAgIC AgICAgICAgICAgICAgICAgICANCiAgICAgICAgICAgICAgICAgICAgICAgICAgICAgICAgICAgICAgIC AgICAgICAgICAgICAgICAgICAgICAgICAgICAgICAgICAgICAgICAgICAgICAgICAgICAgICAgICAgIC ANCiAgICAgICAgICAgICAgICAgICAgICAgICAgICAg ICAgICAgICAgICAgICAgICAgICAgICAgICAgICAgICAgICAgICAgICAgICAgICAgICAgICAgICAgICAg ICAgICAgICAgICANCiAgICAgICAgICAgICAgICAgICAgICAgICAgICAgICAgICAgICAgICAgICAgICAg ICAgICAgICAgICAgICAgICAgICAgICAgICAgICAgIC AgICAgICAgICAgICAgICAgICAgICANCiAgICAgICAgICAgICAgICAgICAgICAgICAgICAgICAgICAgIC AgICAgICAgICAgICAgICAgICAgICAgICAgICAgICAgICAgICAgICAgICAgICAgICAgICAgICAgICAgIC AgICANCiAgICAgICAgICAgICAgICAgICAgICAgICAg ICAgICAgICAgICAgICAgICAgICAgICAgICAgICAgICAgICAgICAgICAgICAgICAgICAgICAgICAgICAg ICAgICAgICAgICAgICANCiAgICAgICAgICAgICAgICAgICAgICAgICAgICAgICAgICAgICAgICAgICAg ICAgICAgICAgICAgICAgICAgICAgICAgICAgICAgIC AgICAgICAgICAgICAgICAgICAgICAgICANCiAgICAgICAgICAgICAgICAgICAgICAgICAgICAgICAgIC AgICAgICAgICAgICAgICAgICAgICAgICAgICAgICAgICAgICAgICAgICAgICAgICAgICAgICAgICAgIC AgICAgICANCiAgICAgICAgICAgICAgICAgICAgICAg ICAgICAgICAgICAgICAgICAgICAgICAgICAgICAgICAgICAgICAgICAgICAgICAgICAgICAgICAgICAg ICAgICAgICAgICAgICAgICANCjw/wMZqX5wujDCkugP3E9wqKy7CPm5DTX4ry4IiRIOuLExtpyRpCplF XlNpAEZfDbrQAli7TDslBI9XkPNrM4ZxV0JgMFyoEL 0CKXHwMADsgFVuVXFoKPUcRmG9UEYqCDzxKQ4DvRPjXPlnZQZxJVRfWyUpWYGgPW5KSFIzB505ouSiEr 2VOi5OLzRiEM3heq7YEhFmUDZzGchRWyn0ZDtlSC1FiLKseYSjMAZyDFLYRyPkT2ymp1XlQkVaOHEWOL arVV0Jy7FtzPCbTVg+Lm9HIC1ab8BoYSkyBWPyTU8u uw1GTOzKZzNnM1EvqYnzWTXqj1igLMIkCT6yyFHpUWO1VOQ9TB0cOMFCo58dt8iqkMlnBSJjMOTvDt1b QS9rLEDjTDKnRsErXTFHUA3XKGAfJTMnbAEuWPLeWCYHQE5USEciHIT7NUHnwzXcsZBuZGnwXW8DXPEf bnQgMjQgMCBSDQo+Po2MFV8sq2PoTCvvXpUgWR8fca 1UJEsMYjRkV5T2qOJbV0S9CXecAn1ZSLQlCKVhTjPaSIGTPPbhLH1IZF3xtmZ5OL6VcNXhQMDxYEKfdP FcBPh3Y43jkWXrRPsfRF6YIHP+Tawanna+Gw3IQLNvXUKiORIhFhFkLSBGHtCqJ3ZyA4FKr0YqN7IzKS70bZ yhdbVcXFutPI0PLL1oATOpMKZZWE5VoYImqI1cuyPv WTPpMHPWZlEiH68lrFRgAGBaAIDtTLEmPe6XXSPmZ4LgluTmuRlcaoVsKFBwSVTJML0UOYotbsUeoQKz aHcbOH04wQdbGX8STu7FEzZrNO5wly0AzAViDg0DOBZkLa3RYUNjBMBcXDWwKTS3HCZnAkNzCCweGZRd ASHoYHT5YMVeUQQmMR0JDiFyEBKmOhX3QxOkORRbRF Yqtz6PTYQqSKJuHHQ7CJGfTJQjQAPxDSnxDINpGZQnLFK9IFGwNZWqKI7RNxOzJFNcIIX8WokiNENhYA Ummp1SECVrYIEkDFF7DcAjIBXlTIVcGLdlUORsJGC6NHW9WFPrRCXrDU8KQvImCROuWWztKIlnRHZePK Vcyl0UZJLrNLWaIPSgOxSwDSZiHEEyHBlaIIAbBBR2 QnJjCTMvFPNhOQ8NSeTsISFnJJt1JFMqLNIsUBAegd2GOGOvPSYcLSP5ZeDhGJRpKGDmKOlvFXWfKWK5 XbT2GPBjHOEfIB1LWgZlXSWaXZw8GGSzGYPjCQWjej9LICSnKHQzJTF8IhImSRCvQYMiPKktYEVjOTGh OYe0KRDwNXOfZL9QOrCsYXXhFkJ2XMhrZZWnWEVkne 2YBJRpRTEgKaX9OhArRRFbYGJlETbjJZChNFWrFxJwKEWnHEYoHW3ABoMfTSLoStRbAQenYDIrPBMcht 9OIZUuHRZpGmBbPJMfSUZgIKXtXLbqVIQvYMIhUVHiYUYgJJNoON8FMlMgETOpExL0DhSnHTPvSWQogm 3LZEFiEMCbPBI9BTPeFTXnXJGrXJrgCQYdEIH5LZW7 NAQqONBpHJ6FKfNrEJWkTeE1WSFlBUZxCCDqmv4VnMErtTxcgc9RXGbPLb7PbSpwSJU4SWigHu1zcRYi RlIfEOJFTt9JxzBlRTGpLABJANleKVReJPWgJ9N0NIKnNfY9RaE2ERD2WOG8EVGfTYNrBGZtQMU4GnG8 JEU1QHc2KWFfHibvAvB0VRJzYKY3GQMtMHZzBBQ7Py Q+HJ5rRBg+Jb4Yq8QunhS7cpQiEGbyGDzvWS5NNTRIP7HZPa== ID Date Data Source [id number] 05/26/2021 02:21:03 PM EDT [facility] MR EXTREMITY LOWER JOINT WITHOUT CONTRAS T [id number] RESULTInterpreted by:Je Holliday MDEXAM: MRI Right Hip without ContrastHISTORY: Right hip pain, degenerative joint diseaseCOMPARISON: MRI right hip 08/08/2018, hip radiographs 04/29/2018TECHNIQUE: Multiplanar multisequence MR imaging of the right hip was performed, using large wbkfw-vc-ucsk pelvis and dedicated small qkrry-pl-uvfn right hip imaging. Intravenous gadolinium contrast was not administered. Exam was performed on a 3.0 [employer] MRI unit. FINDINGS: No pelvic or proximal [...] rce(s) Supporting Document(s) ID Date Data Source [id number] 05/11/2021 10:24:34 AM T [facility] Name Value Range Interpretation Code Description Data Corrie rce(s) Supporting Document(s) Progress Note [facility] ZTOBZw4iXgYJXvYx97/CVMdlVMPrx7RbTEnrASa0DVklMRKcS5ZnOMG2qQ9kZYI4YFbZQzMoYaCkNeH6 lbm [file] VPRg0K ID Date Data Source [id number] 03/31/2021 01:31:32 PM EDT [facility] IR IMAGE GUIDED NEEDLE DRAIN PROCEDUREFI [...] the right leg in slight internal rotation. [employer] fluoroscopic images demonstrates normal alignment.Utilizing sterile technique [...] rce(s) Supporting Document(s) ID Date Data Source [id number] 03/29/2021 03:17:42 PM EDT [facility] Name Value Range Interpretation Code Description Data Corrie rce(s) Supporting Document(s) Progress Note [facility] SKSQFy1dIfYAItUa83/EZUgeYKPhn0FlHUmlCHg1DTxhMQNwS6TsWVH0wP0iXYK2NHdHPkZqFyTaHKQ4 lbm [file] AgICAgICAgICAgICAgICAgICAgICAgICAgICAgICAg JQLfBIMbJVSyBSNpIPZmSYDxDRCeQOXwXSNaIUOqFIYtAJRaINRgSSQyJTTaJORwSRPpMLQfIQ4INOBt ICAgICAgICAgICAgICAgICAgICAgICAgICAgICAgICAgICAgICAgICAgICAgICAgICAgICAgICAgICAg ICAgICAgICAgICAgICAgICAgICAgICAgICAgICAgIC TsZTIqPC5UXVZjNHDkXUXtCPLxZRAkFAKpOMVaXAIvOOVhIQUwXEJoPHDdNWXuCBVrWDPsMKVhWMOxQI FzNLYmSUDdNZHsLAMqEKPrKWUzUWAoWKGeEQMeSCWyCDOaFSBqIBFkOCWwGGKzRQ9TWIHqJLHxWFKbWR AgICAgICAgICAgICAgICAgICAgICAgICAgICAgICAg DYEgNOCxKHYsUMOvLXUpQWGpCBVfKUXyVYDhYBZnARGeXAShCEJhPSSvIWFsNNXfRHGjKXMeGFBlNM8Z ICAgICAgICAgICAgICAgICAgICAgICAgICAgICAgICAgICAgICAgICAgICAgICAgICAgICAgICAgICAg ICAgICAgICAgICAgICAgICAgICAgICAgICAgICAgIC BgOPMjKYXpFP6EDAKwKLXbGBJfZCStKIWwOCIkRQYmVOZkRQGjKQOeHXXjMEXzULEuHUBvAJFnBITjAH GuFQIpCGIjFGGyNZSzEPEbQTAeWHRjPKXzXJRyPZDeJEIzEDBbTQVfAURrIGKpZJXxRR0CPDXuDZFoYD AgICAgICAgICAgICAgICAgICAgICAgICAgICAgICAg ICAgICAgICAgICAgICAgICAgICAgICAgICAgICAgICAgICAgICAgICAgICAgICAgICAgICAgICAgICAg OE3PPJGqICWqZDCzCWGvZXKmANIlJBHkITAbJFSkJKNzOTEvYKDyNAGpDDBwSPOxDJDoZXRiEMKpYMTa ICAgICAgICAgICAgICAgICAgICAgICAgICAgICAgIC CfHOMyIHUdQXJuFH7USUUqDRQiLYVwTJLjRZGuILWmLBPbTXRjAKXlHHZbOYUhJEPfSNSlNZBoVLVvBG YdOCKzRDBaALGjGHNqXHYeUTWqINLkRLQlYZBhUDOcCGPiDPTnOWFzZJIsYQDnJAZcSTTxXU0FXW93rK Rtj5Z2JMNfJJ4xquf/Nm4DFQqzaaJvaJIuXJ5PJiRa WZ2zdt2JBxKrZK3sko5XQJrFVuDfS9N2kWDyWMSeEOUQFkOmA90bYTyoYz52VQzjEASeVqTxONb8Ko8Z GdDnX8irHJXsYkY8ZWKpUjJtZZdiDT0Pu9PesDZeROl+Pk5DZJ5fs1CqPGfrFUOdWQ1wqv9VSLvEQyYr W0RvvkJ5TKNvTYEkZq2DPKIyABPipMUpAUOpNLZESg HrJ6TokH68GJDTCz9+GHmzwsHgKcmSLvIiEUGxj5RvFNd0NL7RLVZzHGa8kOCdLKOmL6Iei6WxWy28VE UcNfhuH8KzHPtwWeIFzKVdzISgsWukPw9cYBPfKP0lGC9rWZRmIYXdZnZrAOCCAE6UPULkVEWxrCWhBP EcGVDDIQ4ZONjaHXS9XJWnlyVfiGPzEAofJK0VAKJm bnQgMTkgMCBSDQo+Pz0YKE1zv1MgPXgfLUYeZJ8ymv3LMMyTHiBrR3N7hQOmM9T1WAvuHd5NXUSqMJDh KSwvKEVRMCtmNW8MQA0ldtU4ZS8HqNFoRHTaYCIfkNRnILe2L22fmIOfBGuuMJ1VIUS+Tawanna+Ym5RIWSv KZElIJWyAkPpXCSXFdSgS1VvX0GWe2GdX8QmYI21iP eufiIrZXuxUS9GMU1vHUWoICDQCF1XyVLlpO7wxgDhKATgSTHOQcOnZ01wiRSwFEKdZLY4ZROtCt6JFS YxB4RdlcObpWlyzlUmKCErBVBSKP7BPDiprpZwnKAzbIqyEH37qFhiXU1NDt5SQnQvXZ6max5GqJShTw 0MRJUyOi5NVNCuADAqKWRzNVN0IWMoNiBwSXciLQIa MJBeCLA7ITDuFLMoPO0YPpZjNHCaLEqqTitkPZFmIFMdol9JJTXgEJDdWOR0ALVbSVVkWKOzRPddQMVb MCPwZZJ5KKYoSVEmTO1NSeGyGFOuOLDfSSHzNXUfEYWtgi4SYHOxQPQfCvRdLfZvCMAnPJOsEAvfCVMi OLMdWvP2QQZuOKWuGY0AYuIwKNFkBIO8BwOoXZHmQW Qoaf9IMACqYXFwFup6EdSpSTKlNYKsSFqxIFYzWBZ6BdOhSAKtZSZmQA3QKxCsPULxYYV4VFNxFQXjQP Dxcw6HQNCfVMQaRDZ7FLNiXKYuJAApGBjtKITzZHF0XSY5FPJvYADoKV9WRvUuDQRdCAZ8JbZwQILsGH Ixfm0JNEMzAFOsCxu9PYSzATSvPPRaSFiqQYUgYQU7 DjZ3SURaMOHiCA1TPdDhBEJsMFkiVOAkYWDiJTKxrs1FANOpDHPiNcp9RPTqNCXpXQLpKNnpNNNxYUD9 QRacRLWbEGHvHC3CJyAzLZQtCQnvAqOsMRWrNVMeyj3MCXPtSLOuTJLwYVKpZZWgLEXuYTv8vfVwdUHp REy3CO9TD4IwsnBgLpMTAo1To300XLNkRKLdDm9UU7 euGk7yTDZkWTDKRv4RJBa3JZF7EvclC0VwZHP3VbR2HSO3YHOnSBH6WcO6Wxb6OyP+XOv7FLk8SJTaTF Q0FeMdRqXrULSdHNDfBrc2EDz8LdyiId8oBBCYIr6+KIyzpIMrdVhySHEBSuR6ApJ9DIbiGBWBKd4Y ID Date Data Source [id number] 03/29/2021 03:17:00 PM EDT [facility] Name Value Range Interpretation Code Description Data Corrie rce(s) Supporting Document(s) SARS-CoV-2 RNA 2019 nCoV Real-Time RT-PCR: NOT DETECTED [facility] This lab was ordered by [facility] and reported by [facility]. ID Date Data Source [id number] 03/30/2021 05:27:28 PM EDT [facility] Name Value Range Interpretation Code Description Data Corrie rce(s) Supporting Document(s) Specimen source [Identifier] of Unspecified [facility] SARS-CoV-2 RNA 2019 nCoV Real-Time RT-PCR: NOT DETECTED [facility] Assay Performed [facility] Patients first test for condition [facility] Patient employed in healthcare setting [facility] Patient has symptoms related to condition [facility] When did you start to experience these symptoms [Date and time] [Phen X] [facility] Patient was hospitalized because of this condition [facility] patient was admitted to ICU for condition [facility] Patient resides in a congregate care setting [facility] status [facility] ID Date Data Source [id number] 02/22/2021 09:42:20 AM EDT [facility] Name Value Range Interpretation Code Description Data Corrie rce(s) Supporting Document(s) Progress Note [facility] PSOEDn2tOcCRAkTa21/CXGdnEUBej9SpFVbcCEy5IMwwLXSnE9JnCRW2dF0qUOL8OTgPUpRzEjPuCRCh lbm [file] N4VGI8P1CoXlq1YJYeAXK7ErPyKvBvLD1IIs5WXpQ6MYZ5xCRlNk8ZXZV5VPcFSwCuZO4YQXx= ID Date Data Source [id number] 02/21/2021 06:19:09 PM EDT [facility] XR HIP- UNILAT, 2-3 VIEWS [id number] RE SULTInterpreted by:JOSTIN BrownVIS AND RIGHT HIP [...] rce(s) Supporting Document(s) ID Date Data Source [id number] 11/08/2020 10:17:00 AM EST [facility] Name Value Range Interpretation Code Description Data Corrie rce(s) Supporting Document(s) SARS coronavirus 2 RNA Not Detected [facility] This lab was ordered by [facility] and reported by [facility]. Procedure Social History Code Duration Value Status Description Data Source(s ) Alcohol intake 07/08/2021 12:00:00 AM EDT Current non-d inga of alcohol (finding) completed Current non-drinker of alcohol (finding) [facility] Tobacco use and exposure 07/08/2021 12:00:00 AM EDT Never used co mpleted Never used [facility] Smoking 07/08/2021 12:00:00 AM EDT Never smoker completed Never s [facility] Alcohol intake 07/04/2021 12:00:00 AM EDT Current non-d inga of alcohol (finding) completed Current non-drinker of alcohol (finding) [facility] Alcohol intake 06/02/2021 12:00:00 AM EDT Current non-d inga of alcohol (finding) completed Current non-drinker of alcohol (finding) [facility] Smoking 05/12/2021 12:00:00 AM EDT Patient has never smoked co mpleted Patient has never smoked [facility] ([facility]) Alcohol intake 03/31/2021 12:00:00 AM EDT Current non-d inga of alcohol (finding) completed Current non-drinker of alcohol (finding) [facility] Alcohol intake 02/21/2021 12:00:00 AM EDT Current non-d inga of alcohol (finding) completed Current non-drinker of alcohol (finding) [facility] Smoking 01/27/2021 12:00:00 AM EDT Patient has never smoked co mpleted Patient has never smoked [facility] ([facility]) Vital Signs ID Date Data Source [id number] Name Value Range Interpretation Code Description Data Source(s) Systolic blood pressure 121 mm[Hg] 121 mm[Hg] M [facility] ([facility]) Diastolic blood pressure 75 mm[Hg] 75 mm[Hg] [facility] ([facility]) Heart rate 62 /min 62 /min [facility] ([facility]) Body height 69.5 [in_i] 69.5 [in_i] [facility] ([facility]) 5'9.50" Body weight 199.25 [lb_av] 199.25 [lb_av] [facility] T ([facility]) Body mass index (BMI) [Ratio] 29.0 kg/m2 29.0 k g/m2 [facility] ([facility]) Oxygen saturation in Arterial blood by Pulse oximetry 99 % 99 % [facility] ([facility]) Body weight 198.25 [lb_av] 198.25 [lb_av] [facility] ([facility]) Body mass index (BMI) [Ratio] 29.4 kg/m2 29.4 k g/m2 [facility] ([facility]) Heart rate 65 /min 65 /min [facility] ([facility]) Respiratory rate 16 /min 16 /min [facility] ( [facility]) Body temperature 98.6 [degF] 98.6 [degF] [facility] ([facility]) Systolic blood pressure 120 mm[Hg] 120 mm[Hg] M [facility] ([facility]) Body height 68.9 [in_i] 68.9 [in_i] [facility] ([facility]) 5'8.90" Diastolic blood pressure 78 mm[Hg] 78 mm[Hg] [facility] ([facility]) Oxygen saturation in Arterial blood by Pulse oximetry 98 % 98 % [facility] ([facility]) [place] body weight 140 [lb_av] 140 [lb_av] [facility] T ([facility]) Body weight 198.12 [lb_av] 198.12 [lb_av] [facility] T ([facility] Body mass index (BMI) [Ratio] 28.8 kg/m2 28.8 k g/m2 [facility] ([facility] ) Heart rate 60 /min 60 /min [facility] ([facility] Body temperature 97.5 [degF] 97.5 [degF] [facility] ([facility] Body height 69.5 [in_i] 69.5 [in_i] [facility] ([facility] 5'9.50" Systolic blood pressure 120 mm[Hg] 120 mm[Hg] M [facility] ([facility] ) Diastolic blood pressure 84 mm[Hg] 84 mm[Hg] [facility] ([facility] Systolic blood pressure 122 mm[Hg] 122 mm[Hg] M [facility] ([facility] ) Diastolic blood pressure 80 mm[Hg] 80 mm[Hg] [facility] ([facility] Heart rate 55 /min 55 /min [facility] ([facility] Body height 69.5 [in_i] 69.5 [in_i] [facility] ([facility]) 5'9.50" Body weight 199.00 [lb_av] 199.00 [lb_av] [facility] T ([facility] ) Body mass index (BMI) [Ratio] 29.0 kg/m2 29.0 k g/m2 [facility] ([facility] ) Oxygen saturation in Arterial blood by Pulse oximetry 98 % 98 % [facility] ([facility] ) Diastolic blood pressure 74 mm[Hg] 74 mm[Hg] [facility] ([facility]) Body height 68.9 [in_i] 68.9 [in_i] [facility] ([facility]) 5'8.90" Body weight 195.00 [lb_av] 195.00 [lb_av] [facility] T ([facility]) Body mass index (BMI) [Ratio] 28.9 kg/m2 28.9 k g/m2 [facility] ([facility]) Systolic blood pressure 126 mm[Hg] 126 mm[Hg] M [facility] ([facility]) Heart rate 85 /min 85 /min [facility] ([facility]) Respiratory rate 18 /min 18 /min [facility] ( [facility]) Body temperature 98.9 [degF] 98.9 [degF] [facility] ([facility]) Oxygen saturation in Arterial blood by Pulse oximetry 99 % 99 % [facility] ([facility]) [place] body weight 140 [lb_av] 140 [lb_av] [facility] T ([facility]) ID Date Data Source [id number] 03/31/2021 11:18:20 PM EDT [facility] Name Value Range Interpretation Code Description Data Source(s) WEIGHT RECORDED 195 lb 195 lb [facility] Body height Measured 70 in 70 in [facility] PREFERRED NAME Sarah Smith [facility] ID Date Data Source [id number] 03/30/2021 05:27:38 PM EDT [facility] Name Value Range Interpretation Code Description Data Source(s) PREFERRED NAME Sarah Smith [facility] ID Date Data Source [id number] 03/01/2021 02:45:49 PM EDT [facility] Name Value Range Interpretation Code Description Data Source(s) PREFERRED NAME Sarah Smith [facility] ID Date Data Source [id number] 03/01/2021 02:44:45 PM EDT [facility] Name Value Range Interpretation Code Description Data Source(s) PREFERRED NAME Sarah Smith [facility] ID Date Data Source [id number] 03/02/2021 08:11:02 AM EDT [facility] Name Value Range Interpretation Code Description Data Source(s) PREFERRED NAME Sarah Smith [facility] PREFERRED NAME Sarah Smith [facility] ID Date Data Source [id number] [facility] Interpretation Code Description Data Source(s) [facility] Patient Treatment Plan of Care Planned Activity Planned Date Details Description Data Source (s) Levothyroxine Sodium 0.075 MG Oral Tablet [Synthroid] 03/21/2021 12:00:00 AM [facility] ospital azelaic acid 150 MG/ML Topical Foam [Finacea] 01/12/2021 12:00:00 A [facility]
== END 2021-09-22 21:45 | disposition left against medical advice (07) ==
LOC: M ED 19:24
DX: Z53.29 Procedure and treatment not carried out because of patient's decision for other reasons (principal)

== ENCOUNTER 2022-12-28 14:02 | Emergency (ER) | payer BC ==
[~2022-12-28] VITALS: Ht 177.8 cm; Wt 98.7 kg
[~2022-12-28 14:02] MED LIST changes: +CELE100C PO; +FLON1SPR NARES
[2022-12-28] MEDS ORDERED: LOTE5DRO3 (14:32)
[2022-12-28] MEDS ORDERED: XARE10TA (14:32)
[2022-12-28] MEDS ORDERED: LEVO75TA4 (14:32)
[2022-12-28 14:55] LABS: BASO % 0.2 % (0.0-1.0); HEMATOCRIT 46.5 % (36.0-47.0); LYMPH # 0.4 10^3/uL (1.5-5.0); LYMPH % 6.4 % (24.0-44.0); MEAN CORPUSCULAR HEMOGLOBIN 29.1 pg (27.0-33.0); MEAN CORPUSCULAR HGB CONC 32.3 g/dl (32.0-36.5); MEAN CORPUSCULAR VOLUME 90.1 fl (80.0-96.0); MONO # 0.3 10^3/uL (0.0-0.8); MONO % 5.6 % (2.0-8.0); NEUTROPHILS # 5.3 10^3/uL (1.5-8.5); NEUTROPHILS % 87.5 % (36.0-66.0); PLATELET COUNT, AUTOMATED 189 10^3/uL (150-450); RED BLOOD COUNT 5.16 10^6/uL (4.00-5.40); WHITE BLOOD COUNT 6.1 10^3/uL (4.0-10.0)
[2022-12-28] MEDS ORDERED: ONDANSETRON 4MG ORAL DISINTEGRATING TAB PO ONE (15:05)
[2022-12-28 15:31] LABS: LIPASE 24 U/L (12-53)
[2022-12-28 15:36] LABS: ALBUMIN 3.7 G/DL (3.2-5.2); ALKALINE PHOSPHATASE 68 U/L (46-116); ALT/SGPT 20 U/L (7.0-40); AST/SGOT 21 U/L (<34); BILIRUBIN,DIRECT 0.3 MG/DL (<0.4); BILIRUBIN,TOTAL 1.1 MG/DL (0.3-1.2)
[2022-12-28 16:02] LABS: BLOOD UREA NITROGEN 19 MG/DL (9-23); CALCIUM LEVEL 8.7 MG/DL (8.5-10.1); CARBON DIOXIDE LEVEL 28 MMOL/L (20-31); CHLORIDE LEVEL 102 MMOL/L (98-107); CREATININE FOR GFR 0.88 MG/DL (0.55-1.30); GLOMERULAR FILTRATION RATE > 60.0 (>51); GLUCOSE, FASTING 95 MG/DL (60-100); POTASSIUM SERUM 3.8 MMOL/L (3.5-5.1); SODIUM LEVEL 138 MMOL/L (136-145)
[2022-12-28] MEDS ORDERED: ONDA4TAB6 PO (16:20)
[2022-12-28] MEDS ORDERED: HYDR-4571 PO (16:20)
[2022-12-28 16:31] VITALS: BP 127/69
== END 2022-12-28 16:31 | disposition home or self-care (01) ==
LOC: M ED 14:02
DX: K80.50 Calculus of bile duct without cholangitis or cholecystitis without obstruction (principal); R93.2 Abnormal findings on diagnostic imaging of liver and biliary tract; Z86.718 Personal history of other venous thrombosis and embolism; E07.9 Disorder of thyroid, unspecified; Z79.01 Long term (current) use of anticoagulants

== ENCOUNTER → 2023-01-18 | Outpatient (CLI) | payer BC ==
[~2023-01-18] MED LIST changes: +HYDR-4571 PO; +LEVO75TA4; +LOTE5DRO3; +ONDA4TAB6 PO; +XARE10TA
== END ==
LOC: M PLARAD 07:41
PROVIDERS: ATTEND Family Medicine
DX: D37.6 Neoplasm of uncertain behavior of liver, gallbladder and bile ducts (principal)

== ENCOUNTER 2023-03-23 08:05 | Day surgery (SDC) | payer BC ==
[~2023-03-23] VITALS: Ht 177.8 cm; Wt 99.2 kg
[~2023-03-23 08:05] MED LIST changes: +CELE1CAP7 PO; -LEVO75TA4; -LOTE5DRO3; +LOTE5DRO9; +NS 1,000 ML IV ONE; -XARE10TA; +XARE10TA PO
[2023-03-23] MEDS ORDERED: fentaNYL 100 MCG/2 ML INJECTION As Ordered ONE (08:09)
[2023-03-23] MEDS ORDERED: LIDOCAINE 2% INJ 100 MG/5 ML SYRINGE As Ordered ONE (08:09)
[2023-03-23] MEDS ORDERED: propofoL 200 MG/20 ML VIAL As Ordered ONE (08:09)
[2023-03-23 10:07] VITALS: BP 140/72
== END 2023-03-23 10:09 | disposition home or self-care (01) ==
LOC: M OPP 08:05
PROVIDERS: ATTEND Surgery
DX: Z12.11 Encounter for screening for malignant neoplasm of colon (principal); Z86.010 Personal history of colon polyps; K64.0 First degree hemorrhoids; K21.01 Gastro-esophageal reflux disease with esophagitis, with bleeding; K29.70 Gastritis, unspecified, without bleeding; K22.89 Other specified disease of esophagus; Z79.51 Long term (current) use of inhaled steroids; Z79.890 Hormone replacement therapy; Z79.899 Other long term (current) drug therapy
CPT/HCPCS: 43239; 45378; 88305; J3010

== ENCOUNTER → 2024-01-29 | Outpatient (CLI) | payer BC ==
[~2024-01-29] MED LIST changes: -CELE1CAP7 PO; +CELE1CAP99 PO; -NS 1,000 ML IV ONE; +PROHANCE 279.3MG/ML 15ML VIAL As Ordered ONE; +PROHANCE 279.3MG/ML 5ML VIAL As Ordered ONE
== END ==
LOC: M RAD 12:32
PROVIDERS: ATTEND Family Medicine
DX: N28.1 Cyst of kidney, acquired (principal); K76.89 Other specified diseases of liver; K80.20 Calculus of gallbladder without cholecystitis without obstruction
CPT/HCPCS: 74183; A9576

== ENCOUNTER → 2024-02-25 | Outpatient (CLI) | payer BC ==
[~2024-02-25] MED LIST changes: +ESTR0.5T3 PO; -PROHANCE 279.3MG/ML 15ML VIAL As Ordered ONE; -PROHANCE 279.3MG/ML 5ML VIAL As Ordered ONE
== END ==
LOC: M EKG 11:54
PROVIDERS: ATTEND Anesthesiology
DX: Z01.818 Encounter for other preprocedural examination (principal)

== ENCOUNTER 2024-03-06 07:43 | Day surgery (SDC) | payer BC ==
[~2024-03-06] VITALS: Ht 177.8 cm; Wt 101.2 kg
[2024-03-06] MEDS ORDERED: LR 1,000 ML IV SCH ×2 (08:00→10:45)
[2024-03-06] MEDS ORDERED: dexmedeTOMIDine (4MCG/ML)200MCG/50ML BTL (PRECEDEX) As Ordered ONE (09:43)
[2024-03-06] MEDS ORDERED: fentaNYL 250 MCG/5 ML INJECTION As Ordered ONE (09:43)
[2024-03-06] MEDS ORDERED: MIDAZOLAM INJ 2MG/2ML VIAL As Ordered ONE (09:43)
[2024-03-06] MEDS ORDERED: ACETAMINOPHEN 1000MG 100ML IV BAG As Ordered ONE (09:43)
[2024-03-06] MEDS ORDERED: METOCLOPRAMIDE INJ 10MG/2ML VIAL As Ordered ONE (09:43)
[2024-03-06] MEDS ORDERED: LIDOCAINE 2% 100MG/5ML SDV (FOR ANES.) As Ordered ONE (09:43)
[2024-03-06] MEDS ORDERED: propofoL 200 MG/20 ML VIAL As Ordered ONE (09:43)
[2024-03-06] MEDS ORDERED: SUGAMMADEX SODIUM 500 MG/5 ML VIAL (BRIDION) As Ordered ONE (09:43)
[2024-03-06] MEDS ORDERED: ONDANSETRON 4MG 2ML VIAL As Ordered ONE (09:43)
[2024-03-06] MEDS ORDERED: ROCURONIUM BROMIDE 50MG/5ML VIAL As Ordered ONE (09:43)
[2024-03-06] MEDS ORDERED: KETOROLAC 60MG 2ML VIAL As Ordered ONE (09:43)
[2024-03-06] MEDS ORDERED: ePHEDrine SULFATE 25 MG/5 ML(5MG/ML) SYRINGE As Ordered ONE (09:55)
[2024-03-06] MEDS ORDERED: HYDROMORPHONE HCL 0.5 MG/ 0.5 ML SYRINGE IV PRN (10:45)
[2024-03-06] MEDS ORDERED: METOCLOPRAMIDE INJ 10MG/2ML VIAL IV PRN (10:45)
[2024-03-06] MEDS: ONDANSETRON 4MG 2ML VIAL IV PRN (10:56)
[2024-03-06] MEDS ORDERED: NORCO, ANEXSIA 5/325MG TABLET (HYDROcodone/ACETAMINOPHEN) PO PRN (11:15)
[2024-03-06] MEDS: fentaNYL 100 MCG/2 ML INJECTION IV PRN (11:24)
[2024-03-06] MEDS: oxyCODONE 5MG TAB PO PRN (11:30)
[2024-03-06 12:45] VITALS: BP 127/62; TEMP 97.5; O2SAT 100
== END 2024-03-06 12:50 | disposition home or self-care (01) ==
LOC: M SDC 07:43
PROVIDERS: ATTEND Surgery
DX: K80.10 Calculus of gallbladder with chronic cholecystitis without obstruction (principal); E03.9 Hypothyroidism, unspecified; Z79.890 Hormone replacement therapy; Z79.899 Other long term (current) drug therapy; Z86.718 Personal history of other venous thrombosis and embolism; Z79.01 Long term (current) use of anticoagulants; Z90.710 Acquired absence of both cervix and uterus; Z90.49 Acquired absence of other specified parts of digestive tract
CPT/HCPCS: 47562; 88304; J0131; J0665; J1100; J1885; J2250; J2405; J2765; J3010; S2900